=== PATIENT | female | born 1965 | race Caucasian/White ===

== ENCOUNTER 2016-10-27 13:16 | Emergency (ER) | payer MEDICARE ==
--- NOTE | 2016-10-27 13:43 | ERPHSYRPT ---
- History of Present Illness Time Seen by Provider: 10/27/16 13:38 Source: patient Exam Limitations: no limitations Patient Subjective Stated Complaint: pt states she has had a sorethraot since 07/30/ states she seen the Dr the next day and started on a z-pack. Triage Nursing Assessment: pt pink, warm,dry. throat red. pt afebrile. Physician History: Pt. with sore throat, dry cough, nasal drainage for past 7 days. Placed on Z pack for 4 days. No fever but chills, no nausea, vomiting or diarrhea. Cough drops with minimal relief. Rest of family with similar symptoms. Timing/Duration: day(s) (7), constant Severity: moderate Modifying Factors: Improves With: eating (hurts to swallow), other (Takes Percoset for chronic back pain) Associated Symptoms: cough (dry), No nausea, No vomiting, No shortness of breath , No chest pain, No fever, No headaches Allergies/Adverse Reactions: sulfamethoxazole [From Bactrim] Allergy (Intermediate, Verified 10/27/16 13:26) trimethoprim [From Bactrim] Allergy (Intermediate, Verified 10/27/16 13:26) cefaclor [From Ceclor] Allergy (Mild, Verified 10/27/16 13:26) Diarrhea cephalexin monohydrate [From Keflex] Allergy (Mild, Verified 10/27/16 13:26) Diarrhea metronidazole [From Flagyl] Allergy (Mild, Verified 10/27/16 13:26) Nausea and Vomiting Metronidazole HCl [From Flagyl] Allergy (Mild, Verified 10/27/16 13:26) Nausea and Vomiting Home Medications: Alprazolam [Xanax] 2 mg PO HS 11/08/13 [History] Albuterol Sulfate [Proair Hfa] 2 puff IH Q4HPRN PRN 11/10/14 [History] Cetirizine HCl [Zyrtec] 1 tab PO DAILY 05/30/16 [History] Omeprazole 20 MG [Prilosec 20 mg] 20 mg PO DAILY 05/30/16 [History] Oxycodone HCl/Acetaminophen [Percocet 10-325 mg Tablet] 1 tab PO QID 05/30/16 [ History] Simvastatin [Zocor] 1 tab PO DAILY 05/30/16 [History] Venlafaxine HCl [Effexor Xr] 150 mg PO DAILY 05/30/16 [History] Venlafaxine HCl [Effexor] 75 mg PO DAILY 10/27/16 [History] Hx Tetanus, Diphtheria Vaccination/Date Given: Yes (up to date) Hx Influenza Vaccination/Date Given: Yes Hx Pneumococcal Vaccination/Date Given: Yes Immunizations Up to Date: Yes - Review of Systems Constitutional: No Fever, No Chills Eyes: No Symptoms Ears, Nose, & Throat: Nose Discharge, Throat Pain Respiratory: No Cough, No Dyspnea Cardiac: No Chest Pain, No Edema, No Syncope Abdominal/Gastrointestinal: No Abdominal Pain, No Nausea, No Vomiting, No Diarrhea Genitourinary Symptoms: No Dysuria Musculoskeletal: No Back Pain, No Neck Pain Skin: No Rash Neurological: No Dizziness, No Focal Weakness, No Sensory Changes Psychological: No Symptoms Endocrine: No Symptoms All Other Systems: Reviewed and Negative - Past Medical History Pertinent Past Medical History: Yes Neurological History: Other ENT History: No Pertinent History Cardiac History: No Pertinent History Respiratory History: Asthma, COPD, Sleep Apnea Endocrine Medical History: Diabetes Type II Musculoskeletal History: Degenerative Disk Disease GI Medical History: GERD History: No Pertinent History Psycho-Social History: Anxiety, Depression Female Reproductive Disorders: Other Other Medical History: myotoniC dystrophy - Past Surgical History Past Surgical History: Yes Neuro Surgical History: No Pertinent History Cardiac: No Pertinent History Respiratory: No Pertinent History Gastrointestinal: Cholecystectomy Genitourinary: No Pertinent History Musculoskeletal: No Pertinent History Female Surgical History: Section, Hysterectomy, Other Other Surgical History: tonsillectomy, breast biopsy, lymph node removal - Social History Smoking Status: Never smoker Exposure to second hand smoke: No Alcohol Use: None Drug Use: none Patient Lives Alone: No Significant Family History: no pertinent family hx - Female History Hx Now: No - Nursing Vital Signs Nursing Vital Signs: Initial Vital Signs Temperature 97.2 F Temperature Source Oral Pulse Rate 76 Respiratory Rate 20 Blood Pressure 151/95 Pain Intensity 6 - Physical Exam General Appearance: no apparent distress, alert Eye Exam: PERRL/EOMI, eyes nml inspection Ears, Nose, Throat Exam: TMs normal, moist mucous membranes, pharyngeal erythema Neck Exam: normal inspection, non-tender, supple, full range of motion Respiratory Exam: normal breath sounds, lungs clear, No respiratory distress Cardiovascular Exam: regular rate/rhythm, normal heart sounds, normal peripheral pulses Gastrointestinal/Abdomen Exam: soft, normal bowel sounds, No tenderness, No mass Back Exam: normal inspection, normal range of motion, No CVA tenderness, No vertebral tenderness Extremity Exam: normal inspection, normal range of motion, pelvis stable Neurologic Exam: alert, oriented x 3, cooperative, normal mood/affect, nml cerebellar function, nml station & gait, sensation nml, No motor deficits Skin Exam: normal color, warm, dry, No rash Lymphatic Exam: No adenopathy SpO2: 95 Oxygen Delivery: Room Air - Course Nursing assessment & vital signs reviewed: Yes Ordered Tests: Active Orders 24 hr Category Date Time Status CULTURE, THROAT Stat Lab 10/27/16 13:46 Received STREP SCREEN-BETA A Stat Lab 10/27/16 13:46 Completed Lab/Rad Data: Laboratory Results 10/27/16 Range/Units 13:46 Streptococcus Screen NEGATIVE (Negative) - Progress Progress: unchanged Counseled pt/family regarding: diagnosis - Departure Time of Disposition: 14:21 Departure Disposition: Home Clinical Impression: Pharyngitis Condition: Stable Critical Care Time: No Referrals: WES VERDUGO [Primary Care Provider] - Instructions: Viral Pharyngitis Additional Instructions: return for worse sore throat, fever, chills or difficulty swallowing. May use throat lozenges, Motrin or Tylenol for discomfort.
[2016-10-27 14:28] VITALS: BP 128/88; PULSE 80; O2SAT 94
== END 2016-10-27 14:28 | disposition home or self-care (01) ==
LOC: ED 13:16
DX: J02.9 Acute pharyngitis, unspecified (principal); E11.9 Type 2 diabetes mellitus without complications; J45.909 Unspecified asthma, uncomplicated; Z79.899 Other long term (current) drug therapy
CPT/HCPCS: 87070; 87430; 99283

== ENCOUNTER 2017-01-18 17:53 | Emergency (ER) | payer MEDICARE ==
[2017-01-18] MEDS ORDERED: Pepcid 20 MG VIAL IV ONE ×2 (18:08→18:29)
[2017-01-18] MEDS ORDERED: Sodium Chloride 0.9% 1000 ML 1,000 ML IV STA (18:08)
[2017-01-18] MEDS ORDERED: Vistaril 50 MG/ML IM ONE ×2 (18:09→18:29)
[2017-01-18] MEDS ORDERED: Sodium Chloride 0.9% 1000 ML 1,000 ML ONE (18:29)
[2017-01-18 18:43] LABS: BASOPHIL % 0.2 % (0.0-0.4); Eosinophil % 0.5 % (0.00-5.0); Granulocytes % 61.4 % (36.0-66.0); Lymphocytes % 32.4 % (24.0-44.0); Mean Cell Volume 97.6 fl (78-100); Mean Corpuscular Hemoglobin 33.5 pg (26-32); Mean Platelet Volume 10.6 fl (6-9.5); Monocytes % 5.5 % (0.0-12.0); Platelet Count 178 K/mm3 (150-450); Red Blood Count 4.65 M/mm3 (4.1-5.4); Red Cell Distribution Width 13.2 % (11.5-14.0); White Blood Count 5.8 K/mm3 (4.0-10.5)
--- NOTE | 2017-01-18 18:45 | ERPHSYRPT ---
- History of Present Illness Time Seen by Provider: 01/18/17 18:02 Source: patient Patient Subjective Stated Complaint: vomiting/diarrhea Triage Nursing Assessment: staets since saturday evening has had vomiting and diarrhea. vomited x3 yesterday with diarreha x4 yesterday. has had one diarrhea stool today and no vomiting today but has been nausea. c/o abd cramping. skin warm and dry. oral membranes moist Physician History: CC; stomach burning Hx: 51 y/o patient of [employer] with hx of elevated transaminases. She notes some vomiting, diarrhea, stomach burning. She states was unable to drink today. It makes her stomach turn to swallow saliva. She however did not vomit today and had one diarrhea stool. Normal clear urine. No fever or chills. No cough. Timing/Duration: day(s) (3) Severity: mild Allergies/Adverse Reactions: sulfamethoxazole [From Bactrim] Allergy (Intermediate, Verified 01/18/17 18:09) trimethoprim [From Bactrim] Allergy (Intermediate, Verified 01/18/17 18:09) cefaclor [From Ceclor] Allergy (Mild, Verified 01/18/17 18:09) Diarrhea cephalexin monohydrate [From Keflex] Allergy (Mild, Verified 01/18/17 18:09) Diarrhea metronidazole [From Flagyl] Allergy (Mild, Verified 01/18/17 18:09) Nausea and Vomiting Metronidazole HCl [From Flagyl] Allergy (Mild, Verified 01/18/17 18:09) Nausea and Vomiting Home Medications: Albuterol Sulfate [Proair Hfa] 2 puff IH Q4HPRN PRN 11/10/14 [History] Cetirizine HCl [Zyrtec] 1 tab PO DAILY 05/30/16 [History] Omeprazole 20 MG [Prilosec 20 mg] 20 mg PO DAILY 05/30/16 [History] Oxycodone HCl/Acetaminophen [Percocet 10-325 mg Tablet] 1 tab PO QID 05/30/16 [ History] Simvastatin [Zocor] 1 tab PO DAILY 05/30/16 [History] Venlafaxine HCl [Effexor Xr] 150 mg PO DAILY 05/30/16 [History] Venlafaxine HCl [Effexor] 75 mg PO HS 10/27/16 [History] Aripiprazole 10 mg [Abilify 10 MG] 10 mg PO HS 11/17/16 [History] Glipizide 5 mg [Glucotrol 5 MG] 5 mg PO DAILY 11/17/16 [History] Pregabalin [Lyrica 100Mg] 100 mg PO BID 11/17/16 [History] Dicyclomine HCl 20 mg [Bentyl 20 mg] 20 mg PO DAILY 01/18/17 [History] Hx Tetanus, Diphtheria Vaccination/Date Given: Yes Hx Influenza Vaccination/Date Given: Yes Hx Pneumococcal Vaccination/Date Given: Yes Immunizations Up to Date: Yes - Review of Systems Constitutional: Fatigue, Malaise, Weakness, No Fever, No Chills Eyes: No Symptoms Ears, Nose, & Throat: No Symptoms Respiratory: No Cough, No Dyspnea Cardiac: No Chest Pain Abdominal/Gastrointestinal: Abdominal Pain (cramping), Nausea, Vomiting, Diarrhea Genitourinary Symptoms: No Dysuria Musculoskeletal: No Back Pain Skin: No Rash Neurological: No Headache All Other Systems: Reviewed and Negative - Past Medical History Pertinent Past Medical History: Yes Neurological History: Peripheral Neuropathy ENT History: No Pertinent History Cardiac History: Other Respiratory History: Other Endocrine Medical History: Diabetes Type II, Other Musculoskeletal History: Fibromyalgia, Osteoarthritis GI Medical History: GERD History: No Pertinent History Psycho-Social History: Anxiety, Depression Female Reproductive Disorders: Other Other Medical History: Notes enlarged liver, elevated enzymes; - Past Surgical History Past Surgical History: Yes Neuro Surgical History: No Pertinent History Cardiac: No Pertinent History Respiratory: No Pertinent History Gastrointestinal: Cholecystectomy Genitourinary: No Pertinent History Musculoskeletal: No Pertinent History Female Surgical History: Section, Hysterectomy, Other Other Surgical History: tonsillectomy, breast biopsy, lymph node removal - Social History Smoking Status: Never smoker Exposure to second hand smoke: Yes Alcohol Use: None Drug Use: none Patient Lives Alone: No Significant Family History: no pertinent family hx - Female History Hx Now: No - Nursing Vital Signs Nursing Vital Signs: Initial Vital Signs Temperature 97.3 F Temperature Source Oral Pulse Rate 71 Respiratory Rate 18 Blood Pressure [Left Arm] 143/74 Pain Intensity 2 - Physical Exam General Appearance: alert Eye Exam: PERRL/EOMI Ears, Nose, Throat Exam: normal ENT inspection, moist mucous membranes Neck Exam: normal inspection, non-tender, supple Respiratory Exam: normal breath sounds, lungs clear Cardiovascular Exam: regular rate/rhythm, No murmur Gastrointestinal/Abdomen Exam: soft, No tenderness, No distention, No mass, No guarding Back Exam: normal inspection Extremity Exam: normal inspection, normal range of motion Neurologic Exam: alert, oriented x 3, cooperative, sensation nml, No motor deficits Skin Exam: warm, dry, No rash - Course Nursing assessment & vital signs reviewed: Yes Ordered Tests: Active Orders 24 hr Category Date Time Status IV Insertion STAT Care 01/18/17 18:08 Active OBSTR/ACUTE ABDOMEN SERIES Stat Exams 01/18/17 18:09 Taken CBC W DIFF Stat Lab 01/18/17 18:25 Completed CMP Stat Lab 01/18/17 18:25 Completed CULTURE,URINE Stat Lab 01/18/17 19:09 Received LIPASE Stat Lab 01/18/17 18:25 Completed UA W/ MICROSCOPIC Stat Lab 01/18/17 19:09 Completed Medication Summary Discontinued Medications Generic Name Dose Route Start Last Admin Trade Name Nikkoq PRN Reason Stop Dose Admin Famotidine 20 mg 01/18/17 18:08 01/18/17 18:30 Pepcid 20 Mg Vial IV 01/18/17 18:09 20 mg STAT ONE Administration Famotidine Confirm 01/18/17 18:29 Pepcid 20 Mg Vial Administered 01/18/17 18:30 Dose 20 mg IV .STK-MED ONE Hydroxyzine HCl 50 mg 01/18/17 18:09 01/18/17 18:30 Vistaril 50 Mg/Ml IM 01/18/17 18:10 50 mg STAT ONE Administration Hydroxyzine HCl Confirm 01/18/17 18:29 Vistaril 50 Mg/Ml Administered 01/18/17 18:30 Dose 50 mg IM .STK-MED ONE Sodium Chloride 1,000 mls @ 999 mls/hr 01/18/17 18:08 01/18/17 18:30 Sodium Chloride 0.9% 1000 Ml IV 01/18/17 19:08 999 mls/hr .Q1H1M STA Administration Sodium Chloride Confirm 01/18/17 18:29 Sodium Chloride 0.9% 1000 Ml Administered 01/18/17 18:30 Dose 1,000 mls @ ud .ROUTE .STK-MED ONE Lab/Rad Data: Laboratory Result Diagrams 01/18/17 18:25 01/18/17 18:25 Laboratory Results 01/18/17 01/18/17 01/18/17 Range/Units 19:09 18:25 18:25 WBC 5.8 (4.0-10.5) K/mm3 RBC 4.65 (4.1-5.4) M/mm3 Hgb 15.6 (12.0-16.0) gm/dl Hct 45.4 (35-47) % MCV 97.6 (78-100) fl MCH 33.5 H (26-32) pg MCHC 34.4 (32-36) g/dl RDW 13.2 (11.5-14.0) % Plt Count 178 (150-450) K/mm3 MPV 10.6 H (6-9.5) fl Gran % 61.4 (36.0-66.0) % Lymphocytes % 32.4 (24.0-44.0) % Monocytes % 5.5 (0.0-12.0) % Eosinophils % 0.5 (0.00-5.0) % Basophils % 0.2 (0.0-0.4) % Basophils # 0.01 (0-0.4) Sodium 146 H (136-145) mEq/L Potassium 4.0 (3.5-5.1) mEq/L Chloride 108 H (98-107) mEq/L Carbon Dioxide 29.0 (21-32) mEq/L Anion Gap 13.4 (5-15) MEQ/L BUN 12 (9-20) mg/dL Creatinine 0.97 (0.55-1.30) mg/dl Estimated GFR > 60 ML/MIN Glucose 169 H (70-110) MG/DL Calcium 9.2 (8.5-10.1) mg/dL Total Bilirubin 1.4 H (0.2-1.0) mg/dL AST 44 H (15-37) U/L ALT 85 H (12-78) U/L Alkaline Phosphatase 112 (46-116) U/L Serum Total Protein 7.4 (6.4-8.2) gm/dL Albumin 3.7 (3.4-5.0) g/dL Lipase 91 (73-393) U/L Ur Collection Type CATH Urine Color YELLOW (YELLOW) Urine Appearance SLIGHTLY CLOUDY (CLEAR) Urine pH 5.0 (5-6) Ur Specific [place] >=1.030 (1.005-1.025) Urine Protein NEGATIVE (Negative) Urine Glucose (UA) NEGATIVE (NEGATIVE) mg/dL Urine Ketones NEGATIVE (NEGATIVE) Urine Nitrite NEGATIVE (NEGATIVE) Urine Bilirubin NEGATIVE (NEGATIVE) Urine Urobilinogen 0.2 (0-1) mg/dL Urine WBC (Auto) NEGATIVE (NEGATIVE) Urine RBC (Auto) TRACE-INTACT (0-5) Vin/ul Urine Microscopic RBC 0-2 (0-2) /HPF Urine Microscopic WBC 0-2 (0-5) /HPF Ur Epithelial Cells MODERATE (FEW) /HPF Amorphous Crystals MODERATE (NEGATIVE) /HPF Urine Bacteria PACKED (NEGATIVE) /HPF Urine Mucus MODERATE (NEGATIVE) /HPF Specimen Received 01/18/17 191 - Progress Progress Note: 01/18/17 19:31 Stable. She wants to try zofran ODT at home. Urine culture sent. AAS xray neg. Will release. She is sipping water. Advised no driving. Counseled pt/family regarding: lab results, diagnosis, need for follow-up, rad results - Departure Time of Disposition: 19:31 Departure Disposition: Home Clinical Impression: Vomiting and diarrhea, Dehydration Condition: Stable Critical Care Time: No Referrals: WES VERDUGO [Primary Care Provider] - Instructions: Diarrhea and Traveler's Diarrhea -- Adult, Vomiting -- Adult Additional Instructions: VOMITING AND DIARRHEA 1. Take only small amounts of clear, cool liquids at frequent intervals as tolerated for the next 24-48 hours. Avoid milk products and orange juice. Clear liquids are those liquids which you can see through. 2. Pedialyte and popsicles are recommended clear liquids. 3. If the condition worsens you should contact your family physician or return to the emergency department for re-evaluation. Rx zofran for nausea Prescriptions: Ondansetron [Zofran Odt] 4 mg PO Q6HPRN PRN #10 tab.rapdis PRN Reason: Nausea/Vomiting
[2017-01-18 18:52] LABS: ALBUMIN 3.7 g/dL (3.4-5.0); ALKALINE PHOSPHATASE 112 U/L (46-116); ANION GAP 13.4 MEQ/L (5-15); BILIRUBIN,TOTAL 1.4 mg/dL (0.2-1.0); BLOOD UREA NITROGEN 12 mg/dL (9-20); CHLORIDE 108 mEq/L (98-107); Glucose 169 MG/DL (70-110); LIPASE 91 U/L (73-393); SGOT/AST 44 U/L (15-37); SGPT/ALT 85 U/L (12-78); SODIUM 146 mEq/L (136-145); Total Protein 7.4 gm/dL (6.4-8.2)
[2017-01-18 19:24] VITALS: O2SAT 95
[2017-01-18 19:24] LABS: Collection Type CATH
[2017-01-18 19:25] LABS: Bacteria PACKED /HPF (NEGATIVE); COMPLETE URINE MICROSCOPIC? YES; Epithelial Cells MODERATE /HPF (FEW); Mucus MODERATE /HPF (NEGATIVE); WBC 0-2 /HPF (0-5)
[2017-01-18 19:50] VITALS: BP 164/71; PULSE 72
--- NOTE | 2017-01-19 08:07 | XRAY ---
Indication: Right-sided pain for 2 days. Comparison: Chest exam September 28, 2016. 2 views of the abdomen nonacute and nonobstructed with note of previous cholecystectomy. Solid organs unremarkable. Osseous structures intact with minimal osteopenia and degenerative changes. Single PA chest again demonstrates large left base calcified granuloma unchanged. Remaining heart and lungs normal. Bony thorax intact. Impression: Nonacute nonobstructed abdomen. Stable nonacute one view chest with chronic feature.
== END 2017-01-18 19:48 | disposition home or self-care (01) ==
LOC: ED 17:53
DX: R11.2 Nausea with vomiting, unspecified (principal); R19.7 Diarrhea, unspecified; E86.0 Dehydration
CPT/HCPCS: 96372; 96374; 99284; 36000; 96360; 81000; 36415; 83690; 85025; 80053; 87086; 74022; P9612; J3410

== ENCOUNTER 2017-04-26 16:25 | Emergency (ER) | payer MEDICARE ==
[2017-04-26] MEDS ORDERED: Nitrostat 0.4 MG (ED) SL ONE (16:42)
--- NOTE | 2017-04-26 16:42 | ERPHSYRPT ---
- History of Present Illness Time Seen by Provider: 04/26/17 16:39 Historian: patient Exam Limitations: no limitations Physician History: 51 y/o female comes to the ER with complaints of substernal chest pain that started at 3 pm this afternoon. Pt describes the pain as aching, pressure like, 8/10, and not relieved by ASA. Pt was sitting down when she experienced the pain. Pt denies any fever, chills, cough, dizziness, palpitations or shortness of breath. Pt had a stress test done last year and was told she will need a pacemaker in 2 years. Timing/Duration: today Activities at Onset: none Quality: aching, pressure Location: substernal Chest Pain Radiation: no radiation Severity of Pain-Max: moderate Severity of Pain-Current: moderate Modifying Factors: Improves With: nothing Associated Symptoms: denies symptoms Nitro Today/Relief: no nitro taken today Aspirin Treatment Today: 81 mg x 1 Allergies/Adverse Reactions: sulfamethoxazole [From Bactrim] Allergy (Intermediate, Verified 01/18/17 18:09) trimethoprim [From Bactrim] Allergy (Intermediate, Verified 01/18/17 18:09) cefaclor [From Ceclor] Allergy (Mild, Verified 01/18/17 18:09) Diarrhea cephalexin monohydrate [From Keflex] Allergy (Mild, Verified 01/18/17 18:09) Diarrhea metronidazole [From Flagyl] Allergy (Mild, Verified 01/18/17 18:09) Nausea and Vomiting Metronidazole HCl [From Flagyl] Allergy (Mild, Verified 01/18/17 18:09) Nausea and Vomiting Home Medications: Aripiprazole 10 mg [Abilify 10 MG] 10 mg PO DAILY 04/26/17 [History] Aspirin 81 gm Chew [Baby Aspirin 81 mg Chew] 81 mg PO DAILY 04/26/17 [ History] Budesonide [Budesonide EC] 3 mg PO DAILY 04/26/17 [History] Cetirizine HCl [All Day Allergy] 10 mg PO DAILY 04/26/17 [History] Dicyclomine HCl [Bentyl] 10 mg PO Q8H PRN PRN 04/26/17 [History] Glipizide 5 mg [Glucotrol 5 MG] 5 mg PO DAILY 04/26/17 [History] Mometasone Furoate [Nasonex] 17 gm NS DAILY 04/26/17 [History] Omeprazole 20 MG [Prilosec 20 mg] 20 mg PO DAILY 04/26/17 [History] Pregabalin [Lyrica 100Mg] 100 mg PO BID 04/26/17 [History] Simvastatin 10 mg PO DAILY 04/26/17 [History] Trazodone HCl 100 mg PO HS 04/26/17 [History] Venlafaxine HCl ER 75 mg [Effexor XR 75 MG] 75 mg PO DAILY 04/26/17 [ History] Hx Tetanus, Diphtheria Vaccination/Date Given: Yes Hx Influenza Vaccination/Date Given: Yes Hx Pneumococcal Vaccination/Date Given: Yes - Review of Systems Constitutional: No Fever, No Chills Eyes: No Symptoms Ears, Nose, & Throat: No Symptoms Respiratory: No Cough, No Dyspnea Cardiac: Chest Pain, No Edema, No Syncope Abdominal/Gastrointestinal: No Abdominal Pain, No Nausea, No Vomiting, No Diarrhea Genitourinary Symptoms: No Dysuria Musculoskeletal: No Back Pain, No Neck Pain Skin: No Rash Neurological: No Dizziness, No Focal Weakness, No Sensory Changes Psychological: No Symptoms Endocrine: No Symptoms All Other Systems: Reviewed and Negative - Past Medical History Pertinent Past Medical History: Yes Neurological History: Peripheral Neuropathy ENT History: No Pertinent History Cardiac History: Other Respiratory History: Other Endocrine Medical History: Diabetes Type II, Other Musculoskeletal History: Fibromyalgia, Osteoarthritis GI Medical History: GERD History: No Pertinent History Psycho-Social History: Anxiety, Depression Female Reproductive Disorders: Other Other Medical History: Notes enlarged liver, elevated enzymes; - Past Surgical History Past Surgical History: Yes Neuro Surgical History: No Pertinent History Cardiac: No Pertinent History Respiratory: No Pertinent History Gastrointestinal: Cholecystectomy Genitourinary: No Pertinent History Musculoskeletal: No Pertinent History Female Surgical History: Section, Hysterectomy, Other Other Surgical History: tonsillectomy, breast biopsy, lymph node removal - Social History Smoking Status: Never smoker Exposure to second hand smoke: Yes Alcohol Use: None Drug Use: none Patient Lives Alone: No Significant Family History: no pertinent family hx - Female History Hx Now: No - Nursing Vital Signs Nursing Vital Signs: Initial Vital Signs Temperature 97.9 F Temperature Source Oral Pulse Rate [Bilateral Radial] 78 Pulse Rate 68 Respiratory Rate 18 Blood Pressure [Left Arm] 133/79 Blood Pressure [Right Arm] 101/56 Pain Intensity 7 - Physical Exam General Appearance: mild distress, alert Eye Exam: PERRL/EOMI, eyes nml inspection Ears, Nose, Throat Exam: normal ENT inspection, moist mucous membranes Neck Exam: normal inspection, non-tender, supple, full range of motion Respiratory Exam: normal breath sounds, lungs clear, No respiratory distress Cardiovascular Exam: regular rate/rhythm, normal heart sounds, normal peripheral pulses Gastrointestinal/Abdomen Exam: soft, No tenderness, No mass Back Exam: normal inspection, No CVA tenderness, No vertebral tenderness Extremity Exam: normal inspection, normal range of motion Neurologic Exam: alert, oriented x 3, cooperative, normal mood/affect, sensation nml, No motor deficits Skin Exam: normal color, warm, dry - Course Nursing assessment & vital signs reviewed: Yes EKG Interpreted by Me: RATE, Sinus Rhythm, NORMAL AXIS, Non-specific ST Changes Ordered Tests: Active Orders 24 hr Category Date Time Status EKG-ER Only STAT Care 04/26/17 16:38 Active IV Insertion STAT Care 04/26/17 16:38 Active CHEST 2 VIEWS (PA AND LAT) Stat Exams 04/26/17 16:38 Taken CBCD [CBC W DIFF] Stat Lab 04/26/17 16:46 Completed CMP Stat Lab 04/26/17 16:46 Completed D-DIMER QUANTITATION Stat Lab 04/26/17 16:46 Completed PT INR [PROTIME WITH INR] Stat Lab 04/26/17 16:46 Completed PTT Stat Lab 04/26/17 16:46 Completed TROPONIN Stat Lab 04/26/17 16:46 Completed Medication Summary Discontinued Medications Generic Name Dose Route Start Last Admin Trade Name Wero PRN Reason Stop Dose Admin Aspirin 162 mg 04/26/17 17:52 04/26/17 17:56 Baby Aspirin 81 Mg Chew PO 04/26/17 17:53 162 mg STAT ONE Administration Aspirin Confirm 04/26/17 17:54 Baby Aspirin 81 Mg Chew Administered 04/26/17 17:55 Dose 162 mg .ROUTE .STK-MED ONE Clopidogrel Bisulfate 300 mg 04/26/17 17:39 04/26/17 17:45 Plavix 75 Mg Tablet PO 04/26/17 17:40 300 mg STAT ONE Administration Clopidogrel Bisulfate Confirm 04/26/17 17:38 Plavix 75 Mg Tablet Administered 04/26/17 17:39 Dose 300 mg .ROUTE .STK-MED ONE Enoxaparin Sodium Confirm 04/26/17 17:38 Enoxaparin Sodium Administered 04/26/17 17:39 Dose 120 mg SQ .STK-MED ONE Enoxaparin Sodium 100 mg 04/26/17 17:41 04/26/17 17:45 Enoxaparin Sodium SQ 04/26/17 17:42 100 mg 1XONLY ONE Administration Morphine Sulfate 4 mg 04/26/17 17:46 04/26/17 17:55 Morphine Sulfate 4 Mg Inj IV 04/26/17 17:47 4 mg STAT ONE Administration Morphine Sulfate Confirm 04/26/17 17:53 Morphine Sulfate 4 Mg Inj Administered 04/26/17 17:54 Dose 4 mg .ROUTE .STK-MED ONE Nitroglycerin 0.4 mg 04/26/17 16:42 04/26/17 16:52 Nitrostat 0.4 Mg (Ed) SL 04/26/17 16:43 0.4 mg STAT ONE Administration Lab/Rad Data: Laboratory Result Diagrams 04/26/17 16:46 04/26/17 16:46 Laboratory Results 04/26/17 04/26/17 04/26/17 Range/Units 16:46 16:46 16:46 WBC 6.5 (4.0-10.5) K/mm3 RBC 4.80 (4.1-5.4) M/mm3 Hgb 15.6 (12.0-16.0) gm/dl Hct 46.6 (35-47) % MCV 97.1 (78-100) fl MCH 32.5 H (26-32) pg MCHC 33.5 (32-36) g/dl RDW 12.2 (11.5-14.0) % Plt Count 151 (150-450) K/mm3 MPV 11.2 H (6-9.5) fl Gran % 57.0 (36.0-66.0) % Lymphocytes % 36.9 (24.0-44.0) % Monocytes % 4.8 (0.0-12.0) % Eosinophils % 1.1 (0.00-5.0) % Basophils % 0.2 (0.0-0.4) % Basophils # 0.01 (0-0.4) INR 1.00 (0.8-3.0) APTT 28.9 (25.3-37.0) SECONDS D-Dimer 371 (0-500) ng/mL Sodium 141 (136-145) mEq/L Potassium 3.7 (3.5-5.1) mEq/L Chloride 104 (98-107) mEq/L Carbon Dioxide 25.7 (21-32) mEq/L Anion Gap 15.0 (5-15) MEQ/L BUN 16 (9-20) mg/dL Creatinine 0.88 (0.55-1.30) mg/dl Estimated GFR > 60 ML/MIN Glucose 215 H (70-110) MG/DL Calcium 9.0 (8.5-10.1) mg/dL Total Bilirubin 1.50 H (0.2-1.0) mg/dL AST 35 (15-37) U/L ALT 36 (12-78) U/L Alkaline Phosphatase 93 (46-116) U/L Troponin I 0.717 H* (0.000-0.056) ng/ml Serum Total Protein 6.8 (6.4-8.2) gm/dL Albumin 3.5 (3.4-5.0) g/dL - Progress Progress: improved Air Movement: good Progress Note: 04/26/17 18:08 Pt has no relief after receiving ASA and nitro but admits to relief of pain after receiving morphine 4mg IV X 1 dose. The EKG shows similar T wave inversions as previous EKG. Pt has an elevated troponin of 0.717. Pt was given additional ASA 162mg , plavix 300mg and lovenox 100mg. Pt has been accepted by hospitalist, Dr Jhaveri at [facility]. - Departure Time of Disposition: 18:10 Departure Disposition: Transfer Clinical Impression: NSTEMI (non-ST elevated myocardial infarction) Condition: Fair Critical Care Time: Yes Critical Care Time(excluding separately billable procedures): 75-104 minutes
[2017-04-26 16:53] LABS: BASOPHIL % 0.2 % (0.0-0.4); Eosinophil % 1.1 % (0.00-5.0); Lymphocytes % 36.9 % (24.0-44.0); Mean Cell Volume 97.1 fl (78-100); Mean Corpuscular Hemoglobin 32.5 pg (26-32); Mean Platelet Volume 11.2 fl (6-9.5); Monocytes % 4.8 % (0.0-12.0); Platelet Count 151 K/mm3 (150-450); Red Cell Distribution Width 12.2 % (11.5-14.0); White Blood Count 6.5 K/mm3 (4.0-10.5)
[2017-04-26 17:24] VITALS: O2SAT 95
[2017-04-26 17:27] LABS: ALBUMIN 3.5 g/dL (3.4-5.0); ALKALINE PHOSPHATASE 93 U/L (46-116); BLOOD UREA NITROGEN 16 mg/dL (9-20); CHLORIDE 104 mEq/L (98-107); Carbon Dioxide 25.7 mEq/L (21-32); Glucose 215 MG/DL (70-110); Potassium 3.7 mEq/L (3.5-5.1); SGOT/AST 35 U/L (15-37); SGPT/ALT 36 U/L (12-78); SODIUM 141 mEq/L (136-145); Total Protein 6.8 gm/dL (6.4-8.2)
[2017-04-26 17:29] LABS: PROTIME 11.3 SECONDS (9.95-12.35); TROPONIN 0.717 ng/ml (0.000-0.056)
[2017-04-26 17:32] LABS: PTT 28.9 SECONDS (25.3-37.0)
[2017-04-26] MEDS ORDERED: PLAVIX 75 MG Tablet ONE (17:38)
[2017-04-26] MEDS ORDERED: ENOXAPARIN SODIUM SQ ONE ×2 (17:38→17:41)
[2017-04-26] MEDS ORDERED: PLAVIX 75 MG Tablet PO ONE (17:39)
[2017-04-26] MEDS ORDERED: MORPHINE SULFATE 4 MG INJ IV ONE (17:46)
[2017-04-26] MEDS ORDERED: BABY ASPIRIN 81 MG CHEW PO ONE (17:52)
[2017-04-26] MEDS ORDERED: MORPHINE SULFATE 4 MG INJ ONE (17:53)
[2017-04-26] MEDS ORDERED: BABY ASPIRIN 81 MG CHEW ONE (17:54)
[2017-04-26 18:10] VITALS: BP 119/70; PULSE 66
--- NOTE | 2017-04-27 08:46 | XRAY ---
Indication: Left-sided chest pain. Comparison: January 18, 2017. PA/lateral chest again demonstrates left lung base calcified granuloma. Remaining heart, lungs, and bony thorax normal.
== END 2017-04-26 18:35 | disposition short-term general hospital (02) ==
LOC: ED 16:25
DX: I21.4 Non-ST elevation (NSTEMI) myocardial infarction (principal); R07.89 Other chest pain; E11.9 Type 2 diabetes mellitus without complications; G62.9 Polyneuropathy, unspecified; R79.89 Other specified abnormal findings of blood chemistry; Z79.899 Other long term (current) drug therapy; Z79.84 Long term (current) use of oral hypoglycemic drugs
CPT/HCPCS: 36000; 36415; 71020; 80053; 84484; 85025; 85379; 85610; 85730; 93005; 96372; 96374; 99285; J1650; J2270; A9270-GY

== ENCOUNTER 2017-06-27 12:47 | Emergency (ER) | payer MEDICARE ==
[2017-06-27] MEDS ORDERED: Pepcid 20 MG VIAL IV ONE ×2 (13:21→13:27)
[2017-06-27] MEDS ORDERED: Sodium Chloride 0.9% 1000 ML 1,000 ML IV STA (13:21)
[2017-06-27] MEDS ORDERED: Hydromorphone 1 mg/ml Ampule IV ONE (13:21)
[2017-06-27] MEDS ORDERED: Zofran 4 MG/2 ML VIAL IV ONE (13:21)
[2017-06-27] MEDS ORDERED: Zofran 4 MG/2 ML VIAL ONE (13:27)
[2017-06-27] MEDS ORDERED: Sodium Chloride 0.9% 1000 ML 1,000 ML ONE (13:28)
[2017-06-27] MEDS ORDERED: Hydromorphone 1 mg/ml Ampule ONE (13:28)
[2017-06-27 13:44] LABS: BASOPHIL % 0.3 % (0.0-0.4); Eosinophil % 0.5 % (0.00-5.0); Granulocytes % 72.1 % (36.0-66.0); Lymphocytes % 21.9 % (24.0-44.0); Mean Cell Volume 97.6 fl (78-100); Mean Corpuscular Hemoglobin 32.7 pg (26-32); Mean Platelet Volume 11.2 fl (6-9.5); Monocytes % 5.2 % (0.0-12.0); Platelet Count 174 K/mm3 (150-450); Red Blood Count 5.04 M/mm3 (4.1-5.4); White Blood Count 6.5 K/mm3 (4.0-10.5)
[2017-06-27 13:46] LABS: Lactic Acid 2.2 (0.4-2.0)
[2017-06-27 13:46] LABS: Collection Type VOID; Leukocyte Esterase 2+ (NEGATIVE)
[2017-06-27 13:47] LABS: ADD URINE CULTURE? YES (NO); Bacteria MODERATE /HPF (NEGATIVE); Bilirubin SMALL (NEGATIVE); Blood 50 Ery/ul (0-5); COMPLETE URINE MICROSCOPIC? YES; Glucose TRACE mg/dL (NEGATIVE); WBC 25-50 /HPF (0-5)
--- NOTE | 2017-06-27 14:02 | ERPHSYRPT ---
- History of Present Illness Time Seen by Provider: 06/27/17 13:03 Historian: patient, family Patient Subjective Stated Complaint: pt here for n/v x2 today and 2 loose stools , abd pain Triage Nursing Assessment: pt walked in, alert, resp easy, skin w/d pink,abd soft, co abd pain to left side Physician History: CC: vomiting hx: 52 y/o patient of [facility] Chris. She has abd pain, vomiting, diarrhea. No fever. Some dysuria. She is diabetic. Low grade fever at home. Severity of Pain-Max: moderate Severity of Pain-Current: moderate Allergies/Adverse Reactions: sulfamethoxazole [From Bactrim] Allergy (Intermediate, Verified 06/27/17 13:10) trimethoprim [From Bactrim] Allergy (Intermediate, Verified 06/27/17 13:10) cefaclor [From Ceclor] Allergy (Mild, Verified 06/27/17 13:10) Diarrhea cephalexin monohydrate [From Keflex] Allergy (Mild, Verified 06/27/17 13:10) Diarrhea metronidazole [From Flagyl] Allergy (Mild, Verified 06/27/17 13:10) Nausea and Vomiting Metronidazole HCl [From Flagyl] Allergy (Mild, Verified 06/27/17 13:10) Nausea and Vomiting Home Medications: Aripiprazole 10 mg [Abilify 10 MG] 10 mg PO DAILY 04/26/17 [History] Aspirin 81 gm Chew [Baby Aspirin 81 mg Chew] 81 mg PO DAILY 04/26/17 [ History] Budesonide [Budesonide EC] 3 mg PO DAILY 04/26/17 [History] Cetirizine HCl [All Day Allergy] 10 mg PO DAILY 04/26/17 [History] Dicyclomine HCl [Bentyl] 10 mg PO Q8H PRN PRN 04/26/17 [History] Glipizide 5 mg [Glucotrol 5 MG] 5 mg PO DAILY 04/26/17 [History] Mometasone Furoate [Nasonex] 17 gm NS DAILY 04/26/17 [History] Omeprazole 20 MG [Prilosec 20 mg] 20 mg PO DAILY 04/26/17 [History] Pregabalin [Lyrica 100Mg] 100 mg PO BID 04/26/17 [History] Simvastatin 10 mg PO DAILY 04/26/17 [History] Trazodone HCl 100 mg PO HS 04/26/17 [History] Venlafaxine HCl ER 75 mg [Effexor XR 75 MG] 75 mg PO DAILY 04/26/17 [ History] Metoprolol Succinate [Toprol Xl] 50 mg DAILY 06/27/17 [History] Ticagrelor [Brilinta] 60 mg BID 06/27/17 [History] Hx Tetanus, Diphtheria Vaccination/Date Given: Yes Hx Influenza Vaccination/Date Given: No Hx Pneumococcal Vaccination/Date Given: Yes Immunizations Up to Date: Yes - Review of Systems Constitutional: No Fever, No Chills Eyes: No Symptoms Ears, Nose, & Throat: No Symptoms Respiratory: No Cough, No Dyspnea Cardiac: No Chest Pain Abdominal/Gastrointestinal: Abdominal Pain, Nausea, Vomiting, Diarrhea Genitourinary Symptoms: Dysuria Skin: No Rash Neurological: No Headache All Other Systems: Reviewed and Negative - Past Medical History Pertinent Past Medical History: Yes Neurological History: Peripheral Neuropathy ENT History: No Pertinent History Cardiac History: Other Respiratory History: Other Endocrine Medical History: Diabetes Type II, Other Musculoskeletal History: Fibromyalgia, Osteoarthritis GI Medical History: GERD History: No Pertinent History Psycho-Social History: Anxiety, Depression Female Reproductive Disorders: Other Other Medical History: Liver disease - Past Surgical History Past Surgical History: Yes Neuro Surgical History: No Pertinent History Cardiac: No Pertinent History Respiratory: No Pertinent History Gastrointestinal: Cholecystectomy Genitourinary: No Pertinent History Musculoskeletal: No Pertinent History Female Surgical History: Section, Hysterectomy, Other Other Surgical History: tonsillectomy, breast biopsy, lymph node removal - Social History Smoking Status: Never smoker Exposure to second hand smoke: Yes Alcohol Use: None Drug Use: none Patient Lives Alone: No Significant Family History: no pertinent family hx - Female History Hx Last Menstrual Period: post Hx Now: No - Nursing Vital Signs Nursing Vital Signs: Initial Vital Signs Temperature 97.4 F 06/27/17 13:05 Pulse Rate 110 H 06/27/17 13:05 Respiratory Rate 16 06/27/17 13:05 Blood Pressure 156/84 06/27/17 13:05 O2 Sat by Pulse Oximetry 96 06/27/17 13:05 Pain Scale Pain Intensity 2 - Physical Exam General Appearance: alert Eye Exam: PERRL/EOMI, No scleral icterus Ears, Nose, Throat Exam: normal ENT inspection, moist mucous membranes Neck Exam: normal inspection Respiratory Exam: normal breath sounds, lungs clear Cardiovascular Exam: regular rate/rhythm Gastrointestinal/Abdomen Exam: soft, tenderness (RLQ) Extremity Exam: normal inspection, normal range of motion Neurologic Exam: alert, oriented x 3, cooperative, sensation nml, No motor deficits Skin Exam: warm, dry, No rash SpO2 Interpretation: normal SpO2: 96 Oxygen Delivery: Room Air - Course Nursing assessment & vital signs reviewed: Yes - CT Exams abd/pelvis CT Interpretation: Discussed w/radiologist (negative) Ordered Tests: Active Orders 24 hr Category Date Time Status IV Insertion STAT Care 06/27/17 13:21 Active NPO (ED) STAT Care 06/27/17 13:21 Active ABDOMEN AND PELVIS W CONTRAST [CT] Stat Exams 06/27/17 13:21 Completed CBC W DIFF Stat Lab 06/27/17 13:41 Completed CMP Stat Lab 06/27/17 13:41 Completed CULTURE,URINE Stat Lab 06/27/17 13:30 Received LIPASE Stat Lab 06/27/17 13:41 Completed Lactic Acid Stat Lab 06/27/17 Results UA W/ MICROSCOPIC Stat Lab 06/27/17 13:30 Completed Medication Summary Discontinued Medications Generic Name Dose Route Start Last Admin Trade Name Wero PRN Reason Stop Dose Admin Famotidine 20 mg 06/27/17 13:21 06/27/17 13:35 Pepcid 20 Mg Vial IV 06/27/17 13:22 20 mg STAT ONE Administration Famotidine Confirm 06/27/17 13:27 Pepcid 20 Mg Vial Administered 06/27/17 13:28 Dose 20 mg IV .STK-MED ONE Hydromorphone HCl 1 mg 06/27/17 13:21 06/27/17 13:35 Hydromorphone 1 Mg/Ml Ampule IV 06/27/17 13:22 1 mg STAT ONE Administration Hydromorphone HCl Confirm 06/27/17 13:28 Hydromorphone 1 Mg/Ml Ampule Administered 06/27/17 13:29 Dose 1 mg .ROUTE .STK-MED ONE Sodium Chloride 1,000 mls @ 999 mls/hr 06/27/17 13:21 06/27/17 13:34 Sodium Chloride 0.9% 1000 Ml IV 06/27/17 14:21 999 mls/hr .Q1H1M STA Administration Sodium Chloride Confirm 06/27/17 13:28 Sodium Chloride 0.9% 1000 Ml Administered 06/27/17 13:29 Dose 1,000 mls @ ud .ROUTE .STK-MED ONE Ondansetron HCl 4 mg 06/27/17 13:21 06/27/17 13:35 Zofran 4 Mg/2 Ml Vial IV 06/27/17 13:22 4 mg STAT ONE Administration Ondansetron HCl Confirm 06/27/17 13:27 Zofran 4 Mg/2 Ml Vial Administered 06/27/17 13:28 Dose 4 mg .ROUTE .STK-MED ONE Lab/Rad Data: Laboratory Result Diagrams 06/27/17 13:41 06/27/17 13:41 Laboratory Results 06/27/17 06/27/17 06/27/17 Range/Units Unknown 13:41 13:41 WBC 6.5 (4.0-10.5) K/mm3 RBC 5.04 (4.1-5.4) M/mm3 Hgb 16.5 H (12.0-16.0) gm/dl Hct 49.2 H (35-47) % MCV 97.6 (78-100) fl MCH 32.7 H (26-32) pg MCHC 33.5 (32-36) g/dl RDW 13.0 (11.5-14.0) % Plt Count 174 (150-450) K/mm3 MPV 11.2 H (6-9.5) fl Gran % 72.1 H (36.0-66.0) % Lymphocytes % 21.9 L (24.0-44.0) % Monocytes % 5.2 (0.0-12.0) % Eosinophils % 0.5 (0.00-5.0) % Basophils % 0.3 (0.0-0.4) % Basophils # 0.02 (0-0.4) Sodium 143 (136-145) mEq/L Potassium 3.8 (3.5-5.1) mEq/L Chloride 105 (98-107) mEq/L Carbon Dioxide 25.5 (21-32) mEq/L Anion Gap 16.2 H (5-15) MEQ/L BUN 15 (9-20) mg/dL Creatinine 1.10 (0.55-1.30) mg/dl Estimated GFR 55 ML/MIN Glucose 221 H (70-110) MG/DL Lactic Acid 2.2 H (0.4-2.0) Calcium 9.5 (8.5-10.1) mg/dL Total Bilirubin 3.00 H (0.2-1.0) mg/dL AST 32 (15-37) U/L ALT 42 (12-78) U/L Alkaline Phosphatase 149 H (46-116) U/L Serum Total Protein 7.4 (6.4-8.2) gm/dL Albumin 3.5 (3.4-5.0) g/dL Lipase 90 (73-393) U/L Ur Collection Type Urine Color (YELLOW) Urine Appearance (CLEAR) Urine pH (5-6) Ur Specific [place] (1.005-1.025) Urine Protein (Negative) Urine Ketones (NEGATIVE) Urine Blood (0-5) Vin/ul Urine Nitrite (NEGATIVE) Urine Bilirubin (NEGATIVE) Urine Urobilinogen (0-1) mg/dL Ur Leukocyte Esterase (NEGATIVE) Urine Microscopic RBC (0-2) /HPF Urine Microscopic WBC (0-5) /HPF Amorphous Crystals (NEGATIVE) /HPF Urine Bacteria (NEGATIVE) /HPF Urine Glucose (NEGATIVE) mg/dL Specimen Received 06/27/17 Range/Units 13:30 WBC (4.0-10.5) K/mm3 RBC (4.1-5.4) M/mm3 Hgb (12.0-16.0) gm/dl Hct (35-47) % MCV (78-100) fl MCH (26-32) pg MCHC (32-36) g/dl RDW (11.5-14.0) % Plt Count (150-450) K/mm3 MPV (6-9.5) fl Gran % (36.0-66.0) % Lymphocytes % (24.0-44.0) % Monocytes % (0.0-12.0) % Eosinophils % (0.00-5.0) % Basophils % (0.0-0.4) % Basophils # (0-0.4) Sodium (136-145) mEq/L Potassium (3.5-5.1) mEq/L Chloride (98-107) mEq/L Carbon Dioxide (21-32) mEq/L Anion Gap (5-15) MEQ/L BUN (9-20) mg/dL Creatinine (0.55-1.30) mg/dl Estimated GFR ML/MIN Glucose (70-110) MG/DL Lactic Acid (0.4-2.0) Calcium (8.5-10.1) mg/dL Total Bilirubin (0.2-1.0) mg/dL AST (15-37) U/L ALT (12-78) U/L Alkaline Phosphatase (46-116) U/L Serum Total Protein (6.4-8.2) gm/dL Albumin (3.4-5.0) g/dL Lipase (73-393) U/L Ur Collection Type VOID Urine Color YELLOW (YELLOW) Urine Appearance CLOUDY (CLEAR) Urine pH 5.0 (5-6) Ur Specific [place] 1.030 (1.005-1.025) Urine Protein 1+ (Negative) Urine Ketones NEGATIVE (NEGATIVE) Urine Blood 50 (0-5) Vin/ul Urine Nitrite NEGATIVE (NEGATIVE) Urine Bilirubin SMALL (NEGATIVE) Urine Urobilinogen NORMAL (0-1) mg/dL Ur Leukocyte Esterase 2+ (NEGATIVE) Urine Microscopic RBC 0-2 (0-2) /HPF Urine Microscopic WBC 25-50 (0-5) /HPF Amorphous Crystals MODERATE (NEGATIVE) /HPF Urine Bacteria MODERATE (NEGATIVE) /HPF Urine Glucose TRACE (NEGATIVE) mg/dL Specimen Received 06/27/17 1330 - Progress Progress Note: 06/27/17 15:07 She feels some better with meds and IVF. She has UTI. Will Rx cipro and zofran. Appt Saturday. Will release with instructions. Counseled pt/family regarding: lab results, diagnosis, need for follow-up, rad results - Departure Time of Disposition: 15:08 Departure Disposition: Home Clinical Impression: UTI (urinary tract infection), Vomiting and diarrhea Condition: Stable Critical Care Time: No Referrals: WES CHRIS [Primary Care Provider] - 07/01/17 1:15 pm Instructions: Vomiting -- Adult, Urinary Tract Infection (UTI) Additional Instructions: Rx cipro. Rx zofran for nausea. Watch your sugars. See [facility] Facundo Saturday 1:15 Return for problems or concerns Plenty of fluids Prescriptions: Ondansetron ODT 4 MG [Zofran Odt 4 mg] 1 tab PO Q6H PRN PRN #10 tab.rapdis PRN Reason: Nausea/Vomiting Ciprofloxacin [Cipro 500 MG] 1 tab PO BID #20 tablet
[2017-06-27 14:10] LABS: ALBUMIN 3.5 g/dL (3.4-5.0); ANION GAP 16.2 MEQ/L (5-15); Carbon Dioxide 25.5 mEq/L (21-32); Potassium 3.8 mEq/L (3.5-5.1); Total Protein 7.4 gm/dL (6.4-8.2)
[2017-06-27 14:57] VITALS: BP 113/71
--- NOTE | 2017-06-27 15:01 | XRAY ---
Indication: Right lower quadrant pain, vomiting, and diarrhea. Multiple contiguous axial images obtained through the abdomen and pelvis using 80 cc Isovue 370 contrast only. Comparison: Noncontrast exam December 05, 2012. Lung bases again demonstrates minimal bibasilar atelectasis/scarring and 2.6 cm left base calcified granuloma. Heart is not enlarged. Noncontrasted stomach and bowel loops appear nonobstructed. Normal appendix. No free fluid/air. Again previous hysterectomy and cholecystectomy with prominent common bile duct. No choledochal stone. Stable tiny hepatic cyst adjacent to the gallbladder fossa. Remaining liver, pancreas, spleen, adrenal glands, kidneys, ureters, bladder, and aorta appear unremarkable. No pathologic retroperitoneal lymphadenopathy. Osseous structures intact again with minimal spinal degenerative changes. Impression: 1. Stable large left lung base calcified granuloma and tiny hepatic cyst. 2. No new or acute intra-abdominal/pelvic abnormalities. CT DI 34.69
[2017-06-27 15:33] VITALS: PULSE 90; O2SAT 92
== END 2017-06-27 15:40 | disposition home or self-care (01) ==
LOC: ED 12:47
DX: N39.0 Urinary tract infection, site not specified (principal); R11.10 Vomiting, unspecified; R19.7 Diarrhea, unspecified; R10.9 Unspecified abdominal pain; R30.0 Dysuria; Z79.899 Other long term (current) drug therapy; E11.9 Type 2 diabetes mellitus without complications
CPT/HCPCS: 36000; 36415; 74177; 80053; 81000; 83605; 83690; 85025; 87086; 96360; 96374; 96375; 99284; J1170; J2405

== ENCOUNTER 2017-07-19 16:06 | Emergency (ER) | payer MEDICARE ==
[2017-07-19 16:38] VITALS: O2SAT 95
[2017-07-19] MEDS ORDERED: NovoLOG Insulin SQ ONE (17:10)
--- NOTE | 2017-07-19 17:13 | ERPHSYRPT ---
- History of Present Illness Time Seen by Provider: 07/19/17 16:52 Source: patient Patient Subjective Stated Complaint: high blood sugar today Triage Nursing Assessment: ambulated to room. skin w/d, color normal, resp easy. denies any other c/o except blood sugar elevated. took an extra glipizde earlier today but sugar is still elevated. Physician History: CC: high blood sugar Hx: 52 y/o patient of [facility] Chris. She has DM and is on glyburide ER 5mg daily. Today her sugar was high so she took extra pill at 12:30. Still in 270 range to came to ER. No unusual symptoms today. No fever or chills. Always has some memory problems. No chest or abd pain. Not short of breath but did use her nebulizer today. No abd pain, N/V/D. She went to her cardiac rehab today and was doing ok with the exception of elevated sugar. Allergies/Adverse Reactions: sulfamethoxazole [From Bactrim] Allergy (Intermediate, Verified 06/27/17 13:10) trimethoprim [From Bactrim] Allergy (Intermediate, Verified 06/27/17 13:10) cefaclor [From Ceclor] Allergy (Mild, Verified 06/27/17 13:10) Diarrhea cephalexin monohydrate [From Keflex] Allergy (Mild, Verified 06/27/17 13:10) Diarrhea metronidazole [From Flagyl] Allergy (Mild, Verified 06/27/17 13:10) Nausea and Vomiting Metronidazole HCl [From Flagyl] Allergy (Mild, Verified 06/27/17 13:10) Nausea and Vomiting Home Medications: Aripiprazole 10 mg [Abilify 10 MG] 10 mg PO DAILY 04/26/17 [History] Aspirin 81 gm Chew [Baby Aspirin 81 mg Chew] 81 mg PO DAILY 04/26/17 [ History] Budesonide [Budesonide EC] 3 mg PO DAILY 04/26/17 [History] Cetirizine HCl [All Day Allergy] 10 mg PO DAILY 04/26/17 [History] Dicyclomine HCl [Bentyl] 10 mg PO Q8H PRN PRN 04/26/17 [History] Glipizide 5 mg [Glucotrol 5 MG] 5 mg PO DAILY 04/26/17 [History] Mometasone Furoate [Nasonex] 17 gm NS DAILY 04/26/17 [History] Omeprazole 20 MG [Prilosec 20 mg] 20 mg PO DAILY 04/26/17 [History] Pregabalin [Lyrica 100Mg] 100 mg PO BID 04/26/17 [History] Simvastatin 10 mg PO DAILY 04/26/17 [History] Trazodone HCl 100 mg PO HS 04/26/17 [History] Metoprolol Succinate [Toprol Xl] 50 mg DAILY 06/27/17 [History] Ticagrelor [Brilinta] 60 mg BID 06/27/17 [History] Albuterol 2.5 mg/3 ml Neb [Proventil 2.5 mg/3 ml Neb] 2.5 mg IH UD [History] Eszopiclone [Lunesta] 4 mg PO HS 07/19/17 [History] Hx Tetanus, Diphtheria Vaccination/Date Given: No Hx Influenza Vaccination/Date Given: No Hx Pneumococcal Vaccination/Date Given: Yes - Review of Systems Constitutional: No Fever, No Chills Eyes: No Symptoms Ears, Nose, & Throat: No Symptoms Respiratory: No Cough, No Dyspnea Cardiac: No Chest Pain Abdominal/Gastrointestinal: No Abdominal Pain, No Nausea, No Vomiting, No Diarrhea Musculoskeletal: No Back Pain Skin: No Rash Neurological: No Headache All Other Systems: Reviewed and Negative - Past Medical History Pertinent Past Medical History: Yes Neurological History: Peripheral Neuropathy ENT History: No Pertinent History Cardiac History: Other Respiratory History: Other Endocrine Medical History: Diabetes Type II, Other Musculoskeletal History: Fibromyalgia, Osteoarthritis GI Medical History: GERD History: No Pertinent History Psycho-Social History: Anxiety, Depression Female Reproductive Disorders: Other Other Medical History: Liver disease - Past Surgical History Past Surgical History: Yes Neuro Surgical History: No Pertinent History Cardiac: No Pertinent History Respiratory: No Pertinent History Gastrointestinal: Cholecystectomy Genitourinary: No Pertinent History Musculoskeletal: No Pertinent History Female Surgical History: Section, Hysterectomy, Other Other Surgical History: tonsillectomy, breast biopsy, lymph node removal - Social History Smoking Status: Never smoker Exposure to second hand smoke: Yes Alcohol Use: None Drug Use: none Patient Lives Alone: No Significant Family History: no pertinent family hx - Female History Hx Now: No - Nursing Vital Signs Nursing Vital Signs: Initial Vital Signs Pulse Rate 92 H 07/19/17 16:12 Respiratory Rate 16 07/19/17 16:12 Blood Pressure 131/58 07/19/17 16:12 O2 Sat by Pulse Oximetry 98 07/19/17 16:12 Pain Scale Pain Intensity 4 - Physical Exam General Appearance: alert, obese Eye Exam: PERRL/EOMI Ears, Nose, Throat Exam: moist mucous membranes Neck Exam: normal inspection, non-tender, supple Respiratory Exam: normal breath sounds Cardiovascular Exam: regular rate/rhythm Gastrointestinal/Abdomen Exam: soft, No tenderness, No distention Back Exam: normal inspection Extremity Exam: normal inspection, normal range of motion Neurologic Exam: alert, oriented x 3, cooperative, sensation nml, No motor deficits Skin Exam: warm, dry, No rash SpO2 Interpretation: normal SpO2: 95 Oxygen Delivery: Room Air - Course Nursing assessment & vital signs reviewed: Yes Ordered Tests: Active Orders 24 hr Category Date Time Status ACCUCHECK [Accucheck] STAT Care 07/19/17 16:49 Active Clean Catch Urine Specimen STAT Care 07/19/17 17:13 Active CULTURE,URINE Stat Lab 07/19/17 17:30 Received Glucose,Critical Care Urgent Lab 07/19/17 17:20 Completed UA W/ MICROSCOPIC Stat Lab 07/19/17 17:30 Completed VENOUS BLOOD GAS Urgent Lab 07/19/17 17:25 Completed Medication Summary Discontinued Medications Generic Name Dose Route Start Last Admin Trade Name Nikkoq PRN Reason Stop Dose Admin Insulin Aspart 5 unit 07/19/17 17:10 07/19/17 17:27 Novolog Insulin SQ 07/19/17 17:11 5 unit STAT ONE Administration Insulin Aspart Confirm 07/19/17 17:25 Novolog Insulin Administered 07/19/17 17:26 Dose 5 unit .ROUTE .[employer] ONE Lab/Rad Data: Laboratory Results 07/19/17 07/19/17 07/19/17 Range/Units 17:30 17:25 17:20 VBG pH 7.39 (7.32-7.42) VBG pCO2 at Pat Temp 45 (42-55) mm/Hg VBG pO2 at Pat Temp 38 (25-40) mm/Hg VBG HCO3 27.2 (22-28) meq/L VBG O2 Sat (Zaki) 77.9 L (95-100) VBG Base Excess 1.7 (-2.0-2.0) VBG Hemoglobin 14.4 VBG Carboxyhemoglobin 1.9 (0.0-6.9) % T HGB POC Potassium 3.7 (3.5-5.1) Glucose 263 H (70-110) Ur Collection Type CCMS Urine Color YELLOW (YELLOW) Urine Appearance CLEAR (CLEAR) Urine pH 5.0 (5-6) Ur Specific [place] 1.020 (1.005-1.025) Urine Protein 1000 (Negative) Urine Ketones NEGATIVE (NEGATIVE) Urine Blood NEGATIVE (0-5) Vin/ul Urine Nitrite NEGATIVE (NEGATIVE) Urine Bilirubin NEGATIVE (NEGATIVE) Urine Urobilinogen NORMAL (0-1) mg/dL Ur Leukocyte Esterase 1+ (NEGATIVE) Urine Microscopic WBC 5-10 (0-5) /HPF Ur Epithelial Cells MODERATE (FEW) /HPF Urine Bacteria FEW (NEGATIVE) /HPF Urine Culture Reflexed YES (NO) Urine Glucose NEGATIVE (NEGATIVE) mg/dL Specimen Received 07-19-17 1744 - Progress Progress Note: 07/19/17 17:40 GLc 263. Not in DKA. K and Hg ok. 5 units novolog given. Advised OP follow up. 07/19/17 17:49 Voided urine with 5-10 wbc, no UTI symptoms, await cx. Counseled pt/family regarding: lab results, diagnosis, need for follow-up - Departure Time of Disposition: 17:50 Departure Disposition: Home Clinical Impression: Hyperglycemia due to type 2 diabetes mellitus Qualifiers: Diabetes mellitus longterm insulin use: without longterm use Qualified Code(s ): E11.65 - Type 2 diabetes mellitus with hyperglycemia Condition: Stable Critical Care Time: No Referrals: WES CHRIS [Primary Care Provider] - Instructions: Hyperglycemia -- Adult Additional Instructions: Watch sugar. You may take an extra sugar pill at noon when needed. Follow up with LYUBOV Chris Saturday. Return for problems or concerns.
[2017-07-19] MEDS ORDERED: NovoLOG Insulin ONE (17:25)
[2017-07-19 17:33] LABS: VBG BASE EXCESS 1.7 (-2.0-2.0); VBG CARBOXYHEMOGLOBIN 1.9 % T HGB (0.0-6.9); VBG HCO3- 27.2 meq/L (22-28); VBG HEMOGLOBIN 14.4; VBG O2 SATURATION 77.9 (95-100); VBG POTASSIUM 3.7 (3.5-5.1); VBG pH 7.39 (7.32-7.42)
[2017-07-19 17:45] LABS: ADD URINE CULTURE? YES (NO); Bacteria FEW /HPF (NEGATIVE); Bilirubin NEGATIVE (NEGATIVE); Blood NEGATIVE Ery/ul (0-5); COMPLETE URINE MICROSCOPIC? YES; Collection Type CCMS; Epithelial Cells MODERATE /HPF (FEW); Glucose NEGATIVE (NEGATIVE); Leukocyte Esterase 1+ (NEGATIVE)
[2017-07-19 17:57] VITALS: BP 141/92; PULSE 70
== END 2017-07-19 17:57 | disposition home or self-care (01) ==
LOC: ED 16:06
DX: E11.65 Type 2 diabetes mellitus with hyperglycemia (principal); Z79.84 Long term (current) use of oral hypoglycemic drugs; Z79.899 Other long term (current) drug therapy
CPT/HCPCS: 81000; 82805; 82947; 82962; 87086; 96372; 99282; 99284; A9270-GY

== ENCOUNTER 2017-10-25 13:42 | Emergency (ER) | payer MEDICARE ==
[2017-10-25] MEDS ORDERED: Sodium Chloride 0.9% 1000 ML 1,000 ML IV STA (14:11)
[2017-10-25] MEDS ORDERED: Sodium Chloride 0.9% 1000 ML 1,000 ML ONE (14:22)
--- NOTE | 2017-10-25 14:31 | ERPHSYRPT ---
- History of Present Illness Time Seen by Provider: 10/25/17 14:00 Source: patient Exam Limitations: clinical condition Patient Subjective Stated Complaint: Pt states "I was over at the specialty clinic and they sent me here because my blood pressure was 80 something over 67 and my pulse was hard to feel. I do not feel any different." Triage Nursing Assessment: Pt alert and oriented X 3, skin pwd. pt ambulates without difficulty, able to speak in clear full sentences. no apparent distress Physician History: PATIENT WITH A HISTORY OF HYPERTENSION, CHRONIC LOW BACK PAIN, TYPE 2 DIABETES STATES WHILE IN PAIN CLINIC HAS LOW BLOOD PRESSURE. DENIES CHEST PAIN, DYSPNEA , DIAPHORESIS OR PALPITATIONS. Allergies/Adverse Reactions: sulfamethoxazole [From Bactrim] Allergy (Intermediate, Verified 06/27/17 13:10) trimethoprim [From Bactrim] Allergy (Intermediate, Verified 06/27/17 13:10) cefaclor [From Ceclor] Allergy (Mild, Verified 06/27/17 13:10) Diarrhea cephalexin monohydrate [From Keflex] Allergy (Mild, Verified 06/27/17 13:10) Diarrhea metronidazole [From Flagyl] Allergy (Mild, Verified 06/27/17 13:10) Nausea and Vomiting Metronidazole HCl [From Flagyl] Allergy (Mild, Verified 06/27/17 13:10) Nausea and Vomiting Home Medications: Aripiprazole 10 mg [Abilify 10 MG] 10 mg PO DAILY 04/26/17 [History] Aspirin 81 gm Chew [Baby Aspirin 81 mg Chew] 81 mg PO DAILY 04/26/17 [ History] Budesonide [Budesonide EC] 3 mg PO DAILY 04/26/17 [History] Cetirizine HCl [All Day Allergy] 10 mg PO DAILY 04/26/17 [History] Dicyclomine HCl [Bentyl] 10 mg PO Q8H PRN PRN 04/26/17 [History] Glipizide 5 mg [Glucotrol 5 MG] 5 mg PO DAILY 04/26/17 [History] Mometasone Furoate [Nasonex] 17 gm NS DAILY 04/26/17 [History] Omeprazole 20 MG [Prilosec 20 mg] 20 mg PO DAILY 04/26/17 [History] Pregabalin [Lyrica 100Mg] 100 mg PO BID 04/26/17 [History] Simvastatin 10 mg PO DAILY 04/26/17 [History] Metoprolol Succinate [Toprol Xl] 50 mg PO DAILY 06/27/17 [History] Ticagrelor [Brilinta] 60 mg PO BID 06/27/17 [History] Albuterol 2.5 mg/3 ml Neb [Proventil 2.5 mg/3 ml Neb] 2.5 mg IH UD [History] Eszopiclone [Lunesta] 4 mg PO HS 07/19/17 [History] Atorvastatin Calcium [Lipitor 20MG Tablet] 20 mg PO DAILY 08/20/17 [History] Fluoxetine HCl 10 mg [Prozac 10 mg] 0 mg PO DAILY 10/22/17 [History] Oxycodone HCl/Acetaminophen [Percocet 10-325 mg Tablet] 1 each PO Q4-6HPRN PRN 10/22/17 [History] Hx Tetanus, Diphtheria Vaccination/Date Given: No Hx Influenza Vaccination/Date Given: No Hx Pneumococcal Vaccination/Date Given: Yes - Past Medical History Pertinent Past Medical History: Yes Neurological History: Peripheral Neuropathy ENT History: No Pertinent History Cardiac History: Other Respiratory History: Other Endocrine Medical History: Diabetes Type II, Other Musculoskeletal History: Fibromyalgia, Osteoarthritis GI Medical History: GERD History: No Pertinent History Psycho-Social History: Anxiety, Depression Female Reproductive Disorders: Other Other Medical History: Liver disease - Past Surgical History Past Surgical History: Yes Neuro Surgical History: No Pertinent History Cardiac: No Pertinent History Respiratory: No Pertinent History Gastrointestinal: Cholecystectomy Genitourinary: No Pertinent History Musculoskeletal: No Pertinent History Female Surgical History: Section, Hysterectomy, Other Other Surgical History: tonsillectomy, breast biopsy, lymph node removal - Social History Smoking Status: Never smoker Exposure to second hand smoke: Yes Alcohol Use: None Drug Use: none Patient Lives Alone: No Significant Family History: no pertinent family hx - Female History Hx Last Menstrual Period: hysterectomy Hx Now: No - Nursing Vital Signs Nursing Vital Signs: Initial Vital Signs Temperature 97.6 F 10/25/17 13:51 Pulse Rate 76 10/25/17 13:51 Respiratory Rate 16 10/25/17 13:51 Blood Pressure 131/84 10/25/17 13:51 O2 Sat by Pulse Oximetry 94 L 10/25/17 13:51 Pain Scale Pain Intensity 0 - Physical Exam SpO2: 94 Oxygen Delivery: Room Air Ordered Tests: Active Orders 24 hr Category Date Time Status EKG-ER Only STAT Care 10/25/17 14:13 Active Orthostatic Vital Signs STAT Care 10/25/17 14:13 Active CHEST 1 VIEW (PORTABLE) Stat Exams 10/25/17 14:26 Completed CBC W DIFF Stat Lab 10/25/17 14:22 Completed CMP Stat Lab 10/25/17 14:22 Completed TROPONIN Q3H Lab 10/25/17 14:22 Completed Medication Summary Discontinued Medications Generic Name Dose Route Start Last Admin Trade Name Freq PRN Reason Stop Dose Admin Sodium Chloride 1,000 mls @ 500 mls/hr 10/25/17 14:11 10/25/17 14:27 Sodium Chloride 0.9% 1000 Ml IV 10/25/17 16:10 500 mls/hr .Q2H STA Administration Sodium Chloride Confirm 10/25/17 14:22 Sodium Chloride 0.9% 1000 Ml Administered 10/25/17 14:23 Dose 1,000 mls @ ud .ROUTE .[facility] [place] Lab/Rad Data: Laboratory Result Diagrams 10/25/17 14:22 10/25/17 14:22 Laboratory Results 10/25/17 10/25/17 10/25/17 Range/Units 14:22 14:22 14:22 WBC 6.2 (4.0-10.5) K/mm3 RBC 4.41 (4.1-5.4) M/mm3 Hgb 14.1 (12.0-16.0) gm/dl Hct 43.4 (35-47) % MCV 98.4 (78-100) fl MCH 32.0 (26-32) pg MCHC 32.5 (32-36) g/dl RDW 12.8 (11.5-14.0) % Plt Count 165 (150-450) K/mm3 MPV 11.5 H (6-9.5) fl Gran % 57.4 (36.0-66.0) % Lymphocytes % 35.9 (24.0-44.0) % Monocytes % 5.4 (0.0-12.0) % Eosinophils % 1.1 (0.00-5.0) % Basophils % 0.2 (0.0-0.4) % Basophils # 0.01 (0-0.4) Sodium 144 (136-145) mEq/L Potassium 4.2 (3.5-5.1) mEq/L Chloride 110 H (98-107) mEq/L Carbon Dioxide 27.0 (21-32) mEq/L Anion Gap 10.9 (5-15) MEQ/L BUN 13 (9-20) mg/dL Creatinine 0.98 (0.55-1.30) mg/dl Estimated GFR > 60 ML/MIN Glucose 116 H (70-110) MG/DL Calcium 8.7 (8.5-10.1) mg/dL Total Bilirubin 1.60 H (0.2-1.0) mg/dL AST 49 H (15-37) U/L ALT 49 (12-78) U/L Alkaline Phosphatase 118 H (46-116) U/L Troponin I < 0.017 (0.000-0.056) ng/ml Serum Total Protein 6.3 L (6.4-8.2) gm/dL Albumin 2.9 L (3.4-5.0) g/dL - Departure Time of Disposition: 17:30 Clinical Impression: ORTHOSTATIC HYPOTENSION, DEHYDRATION Condition: Stable Critical Care Time: No Referrals: WES VERDUGO [Primary Care Provider] - Additional Instructions: CONTINUE ALL CURRENT MEDICATIONS. DRINK PLENTY OF FLUIDS. CONSULT YOUR PRIMARY CARE PROVIDER FOR EVALAUTION.
[2017-10-25 14:37] LABS: BASOPHIL % 0.2 % (0.0-0.4); Basophil (Absolute #) 0.01 (0-0.4); Eosinophil % 1.1 % (0.00-5.0); Eosinophil (Absolute #) 0.07 (0-0.5); Granulocyte Absolute (ANC) 3.58 (1.4-6.9); Granulocytes % 57.4 % (36.0-66.0); Hematocrit 43.4 % (35-47); Hemoglobin 14.1 gm/dl (12.0-16.0); Lymphocyte (Absolute #) 2.24 (1.0-4.6); Lymphocytes % 35.9 % (24.0-44.0); Mean Cell Volume 98.4 fl (78-100); Mean Corpuscular Hgb Concent. 32.5 g/dl (32-36); Mean Platelet Volume 11.5 fl (6-9.5); Monocyte (Absolute #) 0.34 (0.0-1.3); Monocytes % 5.4 % (0.0-12.0); Platelet Count 165 K/mm3 (150-450); Red Blood Count 4.41 M/mm3 (4.1-5.4); Red Cell Distribution Width 12.8 % (11.5-14.0); White Blood Count 6.2 K/mm3 (4.0-10.5)
--- NOTE | 2017-10-25 14:48 | XRAY ---
Indication: Tachycardia. Low blood pressure. Comparison: April 26, 2017. Portable chest demonstrates minimal right base subsegmental atelectasis/scarring and large left base calcified granuloma. Remaining heart, lungs, and bony thorax normal.
[2017-10-25 14:59] LABS: ALBUMIN 2.9 g/dL (3.4-5.0); ALKALINE PHOSPHATASE 118 U/L (46-116); ANION GAP 10.9 MEQ/L (5-15); BLOOD UREA NITROGEN 13 mg/dL (9-20); CHLORIDE 110 mEq/L (98-107); Calcium 8.7 mg/dL (8.5-10.1); Creatinine 1 0.98 mg/dl (0.55-1.30); EST GLOMERULAR FILTRATION RATE > 60 ML/MIN; Glucose 116 MG/DL (70-110); Potassium 4.2 mEq/L (3.5-5.1); SGOT/AST 49 U/L (15-37); SGPT/ALT 49 U/L (12-78); SODIUM 144 mEq/L (136-145); Total Protein 6.3 gm/dL (6.4-8.2)
--- NOTE | 2017-10-25 17:34 | ERPHSYRPT ---
- History of Present Illness Time Seen by Provider: 10/25/17 14:00 Source: patient Exam Limitations: clinical condition Patient Subjective Stated Complaint: Pt states "I was over at the specialty clinic and they sent me here because my blood pressure was 80 something over 67 and my pulse was hard to feel. I do not feel any different." Triage Nursing Assessment: Pt alert and oriented X 3, skin pwd. pt ambulates without difficulty, able to speak in clear full sentences. no apparent distress Physician History: PATIENT WITH A HISTORY OF CHRONIC BACK PAIN, FIBROMYALGIA, REFERRED TO EMERGENCY FOR EVALUATION OF LOW BLOOD PRESSURE. PATIENT DENIES COMPLAINS OF CHEST PAIN, DYSPNEA, NAUSE, EMESIS OR DIARRHEA. HAS A HISTORY OF IRREGULAR HEART RATE. Timing/Duration: today Modifying Factors: Improves With: nothing Associated Symptoms: denies symptoms Allergies/Adverse Reactions: sulfamethoxazole [From Bactrim] Allergy (Intermediate, Verified 06/27/17 13:10) trimethoprim [From Bactrim] Allergy (Intermediate, Verified 06/27/17 13:10) cefaclor [From Ceclor] Allergy (Mild, Verified 06/27/17 13:10) Diarrhea cephalexin monohydrate [From Keflex] Allergy (Mild, Verified 06/27/17 13:10) Diarrhea metronidazole [From Flagyl] Allergy (Mild, Verified 06/27/17 13:10) Nausea and Vomiting Metronidazole HCl [From Flagyl] Allergy (Mild, Verified 06/27/17 13:10) Nausea and Vomiting Home Medications: Aripiprazole 10 mg [Abilify 10 MG] 10 mg PO DAILY 04/26/17 [History] Aspirin 81 gm Chew [Baby Aspirin 81 mg Chew] 81 mg PO DAILY 04/26/17 [ History] Budesonide [Budesonide EC] 3 mg PO DAILY 04/26/17 [History] Cetirizine HCl [All Day Allergy] 10 mg PO DAILY 04/26/17 [History] Dicyclomine HCl [Bentyl] 10 mg PO Q8H PRN PRN 04/26/17 [History] Glipizide 5 mg [Glucotrol 5 MG] 5 mg PO DAILY 04/26/17 [History] Mometasone Furoate [Nasonex] 17 gm NS DAILY 04/26/17 [History] Omeprazole 20 MG [Prilosec 20 mg] 20 mg PO DAILY 04/26/17 [History] Pregabalin [Lyrica 100Mg] 100 mg PO BID 04/26/17 [History] Simvastatin 10 mg PO DAILY 04/26/17 [History] Metoprolol Succinate [Toprol Xl] 50 mg PO DAILY 06/27/17 [History] Ticagrelor [Brilinta] 60 mg PO BID 06/27/17 [History] Albuterol 2.5 mg/3 ml Neb [Proventil 2.5 mg/3 ml Neb] 2.5 mg IH UD [History] Eszopiclone [Lunesta] 4 mg PO HS 07/19/17 [History] Atorvastatin Calcium [Lipitor 20MG Tablet] 20 mg PO DAILY 08/20/17 [History] Fluoxetine HCl 10 mg [Prozac 10 mg] 0 mg PO DAILY 10/22/17 [History] Oxycodone HCl/Acetaminophen [Percocet 10-325 mg Tablet] 1 each PO Q4-6HPRN PRN 10/22/17 [History] Hx Tetanus, Diphtheria Vaccination/Date Given: No Hx Influenza Vaccination/Date Given: No Hx Pneumococcal Vaccination/Date Given: Yes Immunizations Up to Date: Yes - Review of Systems Constitutional: No Fever, No Chills Eyes: No Symptoms Ears, Nose, & Throat: No Symptoms Respiratory: No Symptoms, No Cough, No Dyspnea Cardiac: No Symptoms, No Chest Pain, No Edema, No Syncope Abdominal/Gastrointestinal: No Symptoms, No Abdominal Pain, No Nausea, No Vomiting, No Diarrhea Genitourinary Symptoms: No Symptoms, No Dysuria Musculoskeletal: No Symptoms, No Back Pain, No Neck Pain Skin: No Symptoms, No Rash Neurological: No Dizziness, No Focal Weakness, No Sensory Changes Psychological: No Symptoms Endocrine: No Symptoms All Other Systems: Reviewed and Negative - Past Medical History Pertinent Past Medical History: Yes Neurological History: Peripheral Neuropathy ENT History: No Pertinent History Cardiac History: Other Respiratory History: Other Endocrine Medical History: Diabetes Type II, Other Musculoskeletal History: Fibromyalgia, Osteoarthritis GI Medical History: GERD History: No Pertinent History Psycho-Social History: Anxiety, Depression Female Reproductive Disorders: Other Other Medical History: Liver disease - Past Surgical History Past Surgical History: Yes Neuro Surgical History: No Pertinent History Cardiac: No Pertinent History Respiratory: No Pertinent History Gastrointestinal: Cholecystectomy Genitourinary: No Pertinent History Musculoskeletal: No Pertinent History Female Surgical History: Section, Hysterectomy, Other Other Surgical History: tonsillectomy, breast biopsy, lymph node removal - Social History Smoking Status: Never smoker Exposure to second hand smoke: Yes Alcohol Use: None Drug Use: none Patient Lives Alone: No Significant Family History: no pertinent family hx - Female History Hx Last Menstrual Period: hysterectomy Hx Now: No - Nursing Vital Signs Nursing Vital Signs: Initial Vital Signs Temperature 97.6 F 10/25/17 13:51 Pulse Rate 76 10/25/17 13:51 Respiratory Rate 16 10/25/17 13:51 Blood Pressure 131/84 10/25/17 13:51 O2 Sat by Pulse Oximetry 94 L 10/25/17 13:51 Pain Scale Pain Intensity 2 - Physical Exam General Appearance: no apparent distress, alert Eye Exam: PERRL/EOMI, eyes nml inspection Ears, Nose, Throat Exam: normal ENT inspection, TMs normal, pharynx normal, moist mucous membranes Neck Exam: normal inspection, non-tender, supple, full range of motion Respiratory Exam: normal breath sounds, lungs clear, No respiratory distress Cardiovascular Exam: normal heart sounds, normal peripheral pulses, irregular Gastrointestinal/Abdomen Exam: soft, normal bowel sounds, No tenderness, No mass Back Exam: normal inspection, normal range of motion, No CVA tenderness, No vertebral tenderness Extremity Exam: normal inspection, normal range of motion, pelvis stable Neurologic Exam: alert, oriented x 3, cooperative, normal mood/affect, nml cerebellar function, nml station & gait, sensation nml, No motor deficits Skin Exam: normal color, warm, dry, No rash Lymphatic Exam: No adenopathy SpO2 Interpretation: normal SpO2: 98 Oxygen Delivery: Room Air - Course EKG Interpreted by Me: RATE, A-fib (VENTRICULAR RESPONSE MID 80'S) - Radiology Exams Chest X-ray Interpretation: Discussed w/ radiologist (RIGHT BASILAR ATELECTASIS VS SCARRING) Ordered Tests: Active Orders 24 hr Category Date Time Status EKG-ER Only STAT Care 10/25/17 14:13 Active Orthostatic Vital Signs STAT Care 10/25/17 14:13 Active CHEST 1 VIEW (PORTABLE) Stat Exams 10/25/17 14:26 Completed CBC W DIFF Stat Lab 10/25/17 14:22 Completed CMP Stat Lab 10/25/17 14:22 Completed TROPONIN Q3H Lab 10/25/17 14:22 Completed TROPONIN Q3H Lab 10/25/17 17:15 Ordered TROPONIN Q3H Lab 10/25/17 20:15 Ordered TROPONIN Q3H Lab 10/25/17 23:15 Ordered TROPONIN Q3H Lab 10/26/17 02:15 Ordered UA Stat Lab 10/25/17 14:14 Uncollected Medication Summary Discontinued Medications Generic Name Dose Route Start Last Admin Trade Name Freq PRN Reason Stop Dose Admin Sodium Chloride 1,000 mls @ 500 mls/hr 10/25/17 14:11 10/25/17 14:27 Sodium Chloride 0.9% 1000 Ml IV 10/25/17 16:10 500 mls/hr .Q2H STA Administration Sodium Chloride Confirm 10/25/17 14:22 Sodium Chloride 0.9% 1000 Ml Administered 10/25/17 14:23 Dose 1,000 mls @ ud .ROUTE .[facility] Lab/Rad Data: Laboratory Result Diagrams 10/25/17 14:22 10/25/17 14:22 Laboratory Results 10/25/17 10/25/17 10/25/17 Range/Units 14:22 14:22 14:22 WBC 6.2 (4.0-10.5) K/mm3 RBC 4.41 (4.1-5.4) M/mm3 Hgb 14.1 (12.0-16.0) gm/dl Hct 43.4 (35-47) % MCV 98.4 (78-100) fl MCH 32.0 (26-32) pg MCHC 32.5 (32-36) g/dl RDW 12.8 (11.5-14.0) % Plt Count 165 (150-450) K/mm3 MPV 11.5 H (6-9.5) fl Gran % 57.4 (36.0-66.0) % Lymphocytes % 35.9 (24.0-44.0) % Monocytes % 5.4 (0.0-12.0) % Eosinophils % 1.1 (0.00-5.0) % Basophils % 0.2 (0.0-0.4) % Basophils # 0.01 (0-0.4) Sodium 144 (136-145) mEq/L Potassium 4.2 (3.5-5.1) mEq/L Chloride 110 H (98-107) mEq/L Carbon Dioxide 27.0 (21-32) mEq/L Anion Gap 10.9 (5-15) MEQ/L BUN 13 (9-20) mg/dL Creatinine 0.98 (0.55-1.30) mg/dl Estimated GFR > 60 ML/MIN Glucose 116 H (70-110) MG/DL Calcium 8.7 (8.5-10.1) mg/dL Total Bilirubin 1.60 H (0.2-1.0) mg/dL AST 49 H (15-37) U/L ALT 49 (12-78) U/L Alkaline Phosphatase 118 H (46-116) U/L Troponin I < 0.017 (0.000-0.056) ng/ml Serum Total Protein 6.3 L (6.4-8.2) gm/dL Albumin 2.9 L (3.4-5.0) g/dL - Progress Progress: improved Progress Note: 10/25/17 17:33 ADMINISTERED I LITER NORMAL SALINE OVER 2 HOURS FOR TREATMENT OF ORTHOSTASIS Counseled pt/family regarding: lab results, diagnosis, rad results - Departure Time of Disposition: 17:35 Departure Disposition: Home Clinical Impression: ORTHOSTATIC HYPOTENSION, DEHYDRATION Condition: Stable Critical Care Time: No Referrals: WES VERDUGO [Primary Care Provider] - Additional Instructions: CONTINUE ALL CURRENT MEDICATIONS. DRINK PLENTY OF FLUIDS. CONSULT YOUR PRIMARY CARE PROVIDER FOR [facility]ALAUTION.
[2017-10-25 17:35] VITALS: BP 113/66; PULSE 72
[2017-10-26 07:23] VITALS: O2SAT 94
== END 2017-10-25 17:44 | disposition home or self-care (01) ==
LOC: ED 13:42
DX: I95.1 Orthostatic hypotension (principal); E86.0 Dehydration; E11.9 Type 2 diabetes mellitus without complications; Z79.899 Other long term (current) drug therapy; Z79.891 Long term (current) use of opiate analgesic
CPT/HCPCS: 36000; 36415; 71045; 80053; 84484; 85025; 93005; 96360; 96361; 99284

== ENCOUNTER 2017-11-02 16:03 | Emergency (ER) | payer MEDICARE ==
[2017-11-02] MEDS ORDERED: Zofran 4 MG/2 ML VIAL IV ONE (16:25)
[2017-11-02] MEDS ORDERED: Sodium Chloride 0.9% 1000 ML 1,000 ML IV STA (16:25)
[2017-11-02] MEDS ORDERED: Sodium Chloride 0.9% 1000 ML 1,000 ML ONE (16:33)
[2017-11-02] MEDS ORDERED: Zofran 4 MG/2 ML VIAL ONE (16:33)
--- NOTE | 2017-11-02 16:41 | ERPHSYRPT ---
- History of Present Illness Time Seen by Provider: 11/02/17 16:20 Historian: patient Exam Limitations: clinical condition Patient Subjective Stated Complaint: PT REPORTS VOMIT X 3 TODAY ET ABD PAIN BEGINNING YESTERDAY-DEIES DIARRHEA Triage Nursing Assessment: PT PINK WARM ET [id number] WITH NO DIFFICULTY Physician History: PATIENT WITH A HISTORY OF HYPERTENSION, TYPE 2 DIABETES AND FIBROMYALGIA COMPLAINS OF FREQUENT EPISODES OF EMESIS X 2 DAYS ASSOCIATED WITH WATERY DIARRHEA AND GENERALIZED ABDOMINAL PAIN. DENIES FEVER OR FLANK PAIN. Timing/Duration: yesterday Activities at Onset: none Abdominal Pain Onset Location: generalized abdomen Pain Radiation: no radiation Severity of Pain-Max: mild Severity of Pain-Current: mild Modifying Factors: Improves With: vomiting Associated Symptoms: nausea, vomiting Previous symptoms: no prior history Allergies/Adverse Reactions: sulfamethoxazole [From Bactrim] Allergy (Intermediate, Verified 11/02/17 16:13) trimethoprim [From Bactrim] Allergy (Intermediate, Verified 11/02/17 16:13) cefaclor [From Ceclor] Allergy (Mild, Verified 11/02/17 16:13) Diarrhea cephalexin monohydrate [From Keflex] Allergy (Mild, Verified 11/02/17 16:13) Diarrhea metronidazole [From Flagyl] Allergy (Mild, Verified 11/02/17 16:13) Nausea and Vomiting Metronidazole HCl [From Flagyl] Allergy (Mild, Verified 11/02/17 16:13) Nausea and Vomiting Home Medications: Aripiprazole 10 mg [Abilify 10 MG] 10 mg PO DAILY 04/26/17 [History] Budesonide [Budesonide EC] 3 mg PO DAILY 04/26/17 [History] Cetirizine HCl [All Day Allergy] 10 mg PO DAILY 04/26/17 [History] Dicyclomine HCl [Bentyl] 10 mg PO Q8H PRN PRN 04/26/17 [History] Glipizide 5 mg [Glucotrol 5 MG] 5 mg PO DAILY 04/26/17 [History] Mometasone Furoate [Nasonex] 17 gm NS DAILY 04/26/17 [History] Pregabalin [Lyrica 100Mg] 100 mg PO BID 04/26/17 [History] RX: Aspirin 81 gm Chew [Baby Aspirin 81 mg Chew] 81 mg PO DAILY 04/26/17 [ History] RX: Omeprazole 20 MG [Prilosec 20 mg] 20 mg PO DAILY 04/26/17 [History] RX: Simvastatin 10 mg PO DAILY 04/26/17 [History] Metoprolol Succinate [Toprol Xl] 50 mg PO DAILY 06/27/17 [History] Ticagrelor [Brilinta] 60 mg PO BID 06/27/17 [History] Eszopiclone [Lunesta] 4 mg PO HS 07/19/17 [History] RX: Albuterol 2.5 mg/3 ml Neb [Proventil 2.5 mg/3 ml Neb] 2.5 mg IH UD 03/30 [History] Atorvastatin Calcium [Lipitor 20MG Tablet] 20 mg PO DAILY 08/20/17 [History] Fluoxetine HCl 10 mg [Prozac 10 mg] 0 mg PO DAILY 10/22/17 [History] Oxycodone HCl/Acetaminophen [Percocet 10-325 mg Tablet] 1 each PO Q4-6HPRN PRN 10/22/17 [History] Hx Tetanus, Diphtheria Vaccination/Date Given: No Hx Influenza Vaccination/Date Given: No Hx Pneumococcal Vaccination/Date Given: Yes Immunizations Up to Date: Yes - Review of Systems Constitutional: No Fever, No Chills Eyes: No Symptoms Ears, Nose, & Throat: No Symptoms Respiratory: No Symptoms, No Cough, No Dyspnea Cardiac: No Chest Pain, No Edema, No Syncope Abdominal/Gastrointestinal: Abdominal Pain, Nausea, Vomiting, Diarrhea Genitourinary Symptoms: No Symptoms, No Dysuria Musculoskeletal: No Symptoms, No Back Pain, No Neck Pain Skin: No Rash Neurological: No Symptoms, No Dizziness, No Focal Weakness, No Sensory Changes Psychological: No Symptoms Endocrine: No Symptoms All Other Systems: Reviewed and Negative - Past Medical History Pertinent Past Medical History: Yes Neurological History: Peripheral Neuropathy ENT History: No Pertinent History Cardiac History: Other Respiratory History: Other Endocrine Medical History: Diabetes Type II, Other Musculoskeletal History: Fibromyalgia, Osteoarthritis GI Medical History: GERD History: No Pertinent History Psycho-Social History: Anxiety, Depression Female Reproductive Disorders: Other Other Medical History: Liver disease - Past Surgical History Past Surgical History: Yes Neuro Surgical History: No Pertinent History Cardiac: No Pertinent History Respiratory: No Pertinent History Gastrointestinal: Cholecystectomy Genitourinary: No Pertinent History Musculoskeletal: No Pertinent History Female Surgical History: Section, Hysterectomy, Other Other Surgical History: tonsillectomy, breast biopsy, lymph node removal - Social History Smoking Status: Never smoker Exposure to second hand smoke: Yes Alcohol Use: None Drug Use: none Patient Lives Alone: No Significant Family History: no pertinent family hx - Female History Hx Now: No - Nursing Vital Signs Nursing Vital Signs: Initial Vital Signs Temperature 97.5 F 11/02/17 16:12 Pulse Rate 106 H 11/02/17 16:12 Respiratory Rate 20 11/02/17 16:12 Blood Pressure 119/62 11/02/17 16:12 O2 Sat by Pulse Oximetry 95 11/02/17 16:12 Pain Scale Pain Intensity 2 - Physical Exam General Appearance: no apparent distress, alert Eye Exam: PERRL/EOMI, eyes nml inspection Ears, Nose, Throat Exam: normal ENT inspection, pharynx normal, moist mucous membranes Neck Exam: normal inspection, non-tender, supple, full range of motion Respiratory Exam: normal breath sounds, lungs clear, No respiratory distress Cardiovascular Exam: regular rate/rhythm, normal heart sounds Gastrointestinal/Abdomen Exam: soft, normal bowel sounds, tenderness, other ( PERIUMBILICAL TENDERNESS), No mass Back Exam: normal inspection, normal range of motion, No CVA tenderness, No vertebral tenderness Extremity Exam: normal inspection, normal range of motion, pelvis stable Neurologic Exam: alert, oriented x 3, cooperative, normal mood/affect, nml cerebellar function, sensation nml, No motor deficits Skin Exam: normal color, warm, dry SpO2 Interpretation: normal SpO2: 95 Oxygen Delivery: Room Air - CT Exams Abdomen/Pelvis CT Interpretation: Tele-radiologist Report (NO ACUTE ABNORMALITY IS NOT VISUALIZED, THERE IS A 2.5 CM CALCIFIED LEFT LOWER MASS MOST LIKELY A HAMARTOMA AND IS UNCHANGED) Ordered Tests: Active Orders 24 hr Category Date Time Status Clean Catch Urine Specimen STAT Care 11/02/17 16:45 Active IV Insertion STAT Care 11/02/17 16:20 Active ABDOMEN AND PELVIS W CONTRAST [CT] Stat Exams 11/02/17 16:25 Taken AMYLASE Stat Lab 11/02/17 16:15 Completed BMP Stat Lab 11/02/17 16:15 Completed CBC W DIFF Stat Lab 11/02/17 16:15 Completed CULTURE,URINE Stat Lab 11/02/17 16:00 Received LIPASE Stat Lab 11/02/17 16:15 Completed UA W/ MICROSCOPIC Stat Lab 11/02/17 16:00 Completed Medication Summary Discontinued Medications Generic Name Dose Route Start Last Admin Trade Name Wero PRN Reason Stop Dose Admin Sodium Chloride 1,000 mls @ 500 mls/hr 11/02/17 16:25 11/02/17 16:36 Sodium Chloride 0.9% 1000 Ml IV 11/02/17 18:24 500 mls/hr .Q2H STA Administration Sodium Chloride Confirm 11/02/17 16:33 Sodium Chloride 0.9% 1000 Ml Administered 11/02/17 16:34 Dose 1,000 mls @ ud .ROUTE .STK-MED ONE Levofloxacin/Dextrose 500 mg in 100 mls @ 100 mls/hr 11/02/17 17:39 11/02/17 18:19 Levofloxacin 500mg/100ml D5w IV 11/02/17 18:38 100 mls/hr STAT STA Administration Levofloxacin/Dextrose Confirm 11/02/17 18:18 Levofloxacin 500mg/100ml D5w Administered 11/02/17 18:19 Dose 500 mg in 100 mls @ ud IV .STK-MED ONE Ondansetron HCl 4 mg 11/02/17 16:25 11/02/17 16:36 Zofran 4 Mg/2 Ml Vial IV 11/02/17 16:26 4 mg STAT ONE Administration Ondansetron HCl Confirm 11/02/17 16:33 Zofran 4 Mg/2 Ml Vial Administered 11/02/17 16:34 Dose 4 mg .ROUTE .STK-MED ONE Lab/Rad Data: Laboratory Result Diagrams 11/02/17 16:15 11/02/17 16:15 Laboratory Results 11/02/17 11/02/17 11/02/17 Range/Units 16:15 16:15 16:00 WBC 6.5 (4.0-10.5) K/mm3 RBC 4.78 (4.1-5.4) M/mm3 Hgb 15.1 (12.0-16.0) gm/dl Hct 47.3 H (35-47) % MCV 99.0 (78-100) fl MCH 31.6 (26-32) pg MCHC 31.9 L (32-36) g/dl RDW 12.9 (11.5-14.0) % Plt Count 185 (150-450) K/mm3 MPV 11.9 H (6-9.5) fl Gran % 62.0 (36.0-66.0) % Lymphocytes % 31.7 (24.0-44.0) % Monocytes % 5.1 (0.0-12.0) % Eosinophils % 0.9 (0.00-5.0) % Basophils % 0.3 (0.0-0.4) % Basophils # 0.02 (0-0.4) Sodium 145 (136-145) mEq/L Potassium 3.9 (3.5-5.1) mEq/L Chloride 107 (98-107) mEq/L Carbon Dioxide 30.2 (21-32) mEq/L Anion Gap 11.3 (5-15) MEQ/L BUN 11 (9-20) mg/dL Creatinine 1.03 (0.55-1.30) mg/dl Estimated GFR 59 ML/MIN Glucose 116 H (70-110) MG/DL Calcium 9.4 (8.5-10.1) mg/dL Amylase 100 (25-115) U/L Lipase 103 (73-393) U/L Ur Collection Type CLEAN CATCH Urine Color YELLOW (YELLOW) Urine Appearance CLOUDY (CLEAR) Urine pH 5.0 (5-6) Ur Specific [place] 1.030 (1.005-1.025) Urine Protein TRACE (Negative) Urine Ketones NEGATIVE (NEGATIVE) Urine Blood NEGATIVE (0-5) Vin/ul Urine Nitrite NEGATIVE (NEGATIVE) Urine Bilirubin NEGATIVE (NEGATIVE) Urine Urobilinogen NORMAL (0-1) mg/dL Ur Leukocyte Esterase 1+ (NEGATIVE) Urine Microscopic RBC 0-2 (0-2) /HPF Urine Microscopic WBC 5-10 (0-5) /HPF Ur Epithelial Cells FEW (FEW) /HPF Urine Bacteria FEW (NEGATIVE) /HPF Urine Mucus SLIGHT (NEGATIVE) /HPF Urine Culture Reflexed YES (NO) Urine Glucose NEGATIVE (NEGATIVE) mg/dL Specimen Received 11/02/17 1600 - Progress Progress: improved Progress Note: 11/02/17 16:55 ADMINISTERED IV NORMAL SALINE 500ML/HR, ZOFRAN 4MG, 11/02/17 18:46, LEVAQUIN 500MG IVPB Counseled pt/family regarding: lab results, diagnosis, need for follow-up, rad results - Departure Time of Disposition: 19:25 Departure Disposition: Home Clinical Impression: ACUTE GASTROENTERITIS, URINARY TRACT INFECTION Condition: Stable Critical Care Time: No Referrals: WES VERDUGO [Primary Care Provider] - Additional Instructions: ZOFRAN 4MG EVERY 4 HOURS NEEDED FOR NAUSEA. ANTIBIOTIC LEVAQUIN 500MG DAILY FOR 10 DAYS. DRINK PLENTY OF FLUIDS. CONSULT YOUR PRIMARY CARE PROVIDER FOR EVALUATION. Prescriptions: Levofloxacin [Levaquin] 500 mg PO DAILY #10 tablet Ondansetron [Zofran Odt] 4 mg PO Q4-6HPRN PRN #8 tab.rapdis PRN Reason: Nausea
[2017-11-02 16:47] LABS: BASOPHIL % 0.3 % (0.0-0.4); Basophil (Absolute #) 0.02 (0-0.4); Eosinophil % 0.9 % (0.00-5.0); Eosinophil (Absolute #) 0.06 (0-0.5); Granulocyte Absolute (ANC) 4.04 (1.4-6.9); Hematocrit 47.3 % (35-47); Hemoglobin 15.1 gm/dl (12.0-16.0); Lymphocyte (Absolute #) 2.07 (1.0-4.6); Lymphocytes % 31.7 % (24.0-44.0); Mean Corpuscular Hemoglobin 31.6 pg (26-32); Mean Corpuscular Hgb Concent. 31.9 g/dl (32-36); Mean Platelet Volume 11.9 fl (6-9.5); Monocyte (Absolute #) 0.33 (0.0-1.3); Monocytes % 5.1 % (0.0-12.0); Platelet Count 185 K/mm3 (150-450); Red Blood Count 4.78 M/mm3 (4.1-5.4); Red Cell Distribution Width 12.9 % (11.5-14.0); White Blood Count 6.5 K/mm3 (4.0-10.5)
[2017-11-02 17:05] LABS: ANION GAP 11.3 MEQ/L (5-15); Calcium 9.4 mg/dL (8.5-10.1); Carbon Dioxide 30.2 mEq/L (21-32); Creatinine 1 1.03 mg/dl (0.55-1.30); Potassium 3.9 mEq/L (3.5-5.1)
[2017-11-02 17:24] LABS: Appearance CLOUDY (CLEAR)
[2017-11-02 17:28] LABS: Bilirubin NEGATIVE (NEGATIVE); Blood NEGATIVE Ery/ul (0-5); Glucose NEGATIVE (NEGATIVE); Ketones NEGATIVE (NEGATIVE); Leukocyte Esterase 1+ (NEGATIVE); Mucus SLIGHT /HPF (NEGATIVE); Nitrite NEGATIVE (NEGATIVE); Protein,Urine Dip TRACE (Negative); Urobilinogen NORMAL mg/dL (0-1)
[2017-11-02 17:29] LABS: Bacteria FEW /HPF (NEGATIVE); Epithelial Cells FEW /HPF (FEW)
[2017-11-02] MEDS ORDERED: Levofloxacin 500MG/100ML D5W 500 MG/100 ML BAG IV STA (17:39)
[2017-11-02] MEDS ORDERED: Levofloxacin 500MG/100ML D5W 500 MG/100 ML BAG IV ONE (18:18)
[2017-11-02 18:25] VITALS: BP 123/69; PULSE 106
[2017-11-02 18:50] VITALS: O2SAT 95
--- NOTE | 2017-11-02 23:12 | XRAY ---
Indication: Abdominal pain. Nausea, vomiting, and diarrhea. Multiple contiguous axial images obtained through the abdomen and pelvis using 80 cc Isovue 370 contrast only. Comparison: June 27, 2017. Lung bases again demonstrates bibasilar atelectasis/scarring and large left base calcified granuloma. Heart is not enlarged. Noncontrasted stomach and bowel loops again appears nonobstructed. Normal appendix. Again previous hysterectomy and cholecystectomy. No free fluid/air. Stable tiny hepatic cyst adjacent to the gallbladder fossa. Remaining liver, pancreas, spleen, adrenal glands, kidneys, ureters, and bladder appear unremarkable. Aorta is normal in course and caliber. No AAA or pathological retroperitoneal lymphadenopathy. Osseous structures intact again with mild spinal degenerative changes. Impression: 1. Stable hepatic cyst and left lung base calcified granuloma. 2. No new or acute intra-abdominal/pelvic abnormalities. Comment: Preliminary interpretation was made by [facility]. No critical discrepancy. CTDI 23.68
== END 2017-11-02 19:50 | disposition home or self-care (01) ==
LOC: ED 16:03
DX: K52.89 Other specified noninfective gastroenteritis and colitis (principal); N39.0 Urinary tract infection, site not specified; I10 Essential (primary) hypertension; E11.9 Type 2 diabetes mellitus without complications; M79.7 Fibromyalgia; G62.9 Polyneuropathy, unspecified; K21.9 Gastro-esophageal reflux disease without esophagitis; M19.90 Unspecified osteoarthritis, unspecified site; F41.8 Other specified anxiety disorders; K76.9 Liver disease, unspecified; Z79.899 Other long term (current) drug therapy
CPT/HCPCS: 36000; 36415; 74177; 80048; 81000; 82150; 83690; 85025; 87077; 87086; 87186; 96360; 96365; 96374; 99284; J1956; J2405

== ENCOUNTER 2019-01-13 23:01 | Emergency (ER) | payer MEDICARE ==
[2019-01-13] MEDS ORDERED: TORAdol 30 mg Injection IV ONE (23:36)
[2019-01-13] MEDS ORDERED: Zofran 4 MG/2 ML VIAL IV ONE (23:36)
[2019-01-13] MEDS ORDERED: Pepcid 20 MG VIAL IV ONE ×2 (23:36→23:47)
--- NOTE | 2019-01-13 23:42 | ERPHSYRPT ---
- History of Present Illness Time Seen by Provider: 01/13/19 23:27 Historian: patient Exam Limitations: no limitations Patient Subjective Stated Complaint: pt states she checked her blood sugar at home and was over 500. Triage Nursing Assessment: pt alert and oriented, answers questions approp. pt ambulatory with steady gait ntoed. respirations nonlabored. skin pink warm and dry. Physician History: Pt has been c/o RLQ abdominal pain, radiates to her back for few days, vomited once yesterday, had diarrhea x3 today, denies vomiting blood or coffee ground material, no bloody or black diarrhea, no fever, chills, urinary complaints, her blood sugar was apparently 524 today. After she arrived here her blood sugar is 147 (Glucometer), no chest pain, SOB, cough, dizziness, other complaints. Timing/Duration: day(s) (2) Activities at Onset: none Quality: cramping, sharpness Abdominal Pain Onset Location: RLQ Pain Radiation: flank (right) Severity of Pain-Max: moderate Severity of Pain-Current: moderate Modifying Factors: Improves With: nothing Associated Symptoms: diarrhea, nausea, vomiting Previous symptoms: no prior history Allergies/Adverse Reactions: sulfamethoxazole [From Bactrim] Allergy (Intermediate, Verified 01/13/19 23:21) trimethoprim [From Bactrim] Allergy (Intermediate, Verified 01/13/19 23:21) cefaclor [From Ceclor] Allergy (Mild, Verified 01/13/19 23:21) Diarrhea cephalexin monohydrate [From Keflex] Allergy (Mild, Verified 01/13/19 23:21) Diarrhea metronidazole [From Flagyl] Allergy (Mild, Verified 01/13/19 23:21) Nausea and Vomiting Metronidazole HCl [From Flagyl] Allergy (Mild, Verified 01/13/19 23:21) Nausea and Vomiting Home Medications: Aripiprazole 10 mg [Abilify 10 MG] 10 mg PO DAILY 04/26/17 [History] Aspirin 81 gm Chew [Baby Aspirin 81 mg Chew] 81 mg PO DAILY 04/26/17 [ History] Budesonide [Budesonide EC] 3 mg PO DAILY 04/26/17 [History] Cetirizine HCl [All Day Allergy] 10 mg PO DAILY 04/26/17 [History] Dicyclomine HCl [Bentyl] 10 mg PO Q8H PRN PRN 04/26/17 [History] Glipizide 5 mg [Glucotrol 5 MG] 5 mg PO DAILY 04/26/17 [History] Mometasone Furoate [Nasonex] 17 gm NS DAILY 04/26/17 [History] Omeprazole 20 MG [Prilosec 20 mg] 20 mg PO DAILY 04/26/17 [History] Pregabalin [Lyrica 100Mg] 100 mg PO BID 04/26/17 [History] Simvastatin 10 mg PO DAILY 04/26/17 [History] Metoprolol Succinate [Toprol Xl] 50 mg PO DAILY 06/27/17 [History] Ticagrelor [Brilinta] 60 mg PO BID 06/27/17 [History] Albuterol 2.5 mg/3 ml Neb [Proventil 2.5 mg/3 ml Neb] 2.5 mg IH UD [History] Eszopiclone [Lunesta] 4 mg PO HS 07/19/17 [History] Atorvastatin Calcium [Lipitor 20MG Tablet] 20 mg PO DAILY 08/20/17 [History] Fluoxetine HCl 10 mg [Prozac 10 mg] 0 mg PO DAILY 10/22/17 [History] Fluticasone/Vilanterol [Breo Ellipta 100-25 Mcg INH] 1 each IH UD 01/27/18 [ History] Oxycodone HCl/Acetaminophen [Oxycodon-Acetaminophen 7.5-325] 1 each PO TIDPRN PRN 01/27/18 [History] Hx Tetanus, Diphtheria Vaccination/Date Given: No Hx Influenza Vaccination/Date Given: Yes Hx Pneumococcal Vaccination/Date Given: Yes - Review of Systems Constitutional: No Symptoms Eyes: No Symptoms Ears, Nose, & Throat: No Symptoms Respiratory: No Symptoms Cardiac: No Symptoms Abdominal/Gastrointestinal: Abdominal Pain, Nausea, Vomiting, Diarrhea Genitourinary Symptoms: No Symptoms Musculoskeletal: No Symptoms Skin: No Symptoms Neurological: No Symptoms All Other Systems: Reviewed and Negative - Past Medical History Pertinent Past Medical History: Yes Neurological History: Peripheral Neuropathy ENT History: No Pertinent History Cardiac History: Other Respiratory History: Other Endocrine Medical History: Diabetes Type II, Other Musculoskeletal History: Fibromyalgia, Osteoarthritis GI Medical History: GERD History: No Pertinent History Psycho-Social History: Anxiety, Depression Female Reproductive Disorders: Other Other Medical History: myotonia dystrophy, liver disease - Past Surgical History Past Surgical History: Yes Neuro Surgical History: No Pertinent History Cardiac: No Pertinent History Respiratory: No Pertinent History Gastrointestinal: Cholecystectomy Genitourinary: No Pertinent History Musculoskeletal: No Pertinent History Female Surgical History: Section, Hysterectomy, Other Other Surgical History: tonsillectomy, breast biopsy, lymph node removal - Social History Smoking Status: Never smoker Exposure to second hand smoke: Yes Alcohol Use: None Drug Use: none Patient Lives Alone: No Significant Family History: no pertinent family hx - Nursing Vital Signs Nursing Vital Signs: Initial Vital Signs Pulse Rate 80 01/13/19 23:16 Respiratory Rate 18 01/13/19 23:16 Blood Pressure 130/73 01/13/19 23:16 O2 Sat by Pulse Oximetry 95 01/13/19 23:16 Pain Scale Pain Intensity 4 - Physical Exam General Appearance: no apparent distress Eye Exam: eyes nml inspection Ears, Nose, Throat Exam: normal ENT inspection, moist mucous membranes Neck Exam: normal inspection, non-tender, supple Respiratory Exam: normal breath sounds, lungs clear Cardiovascular Exam: regular rate/rhythm, normal heart sounds, normal peripheral pulses, No murmur Gastrointestinal/Abdomen Exam: soft, normal bowel sounds, tenderness (RLQ), No distention, No mass, No guarding, No ecchymosis, No rebound, No organomegaly Back Exam: normal inspection, CVA tenderness (mild, right) Extremity Exam: normal inspection Neurologic Exam: alert, oriented x 3, cooperative, normal mood/affect Skin Exam: normal color, warm, dry, No rash Lymphatic Exam: No adenopathy SpO2 Interpretation: normal SpO2: 95 O2 Delivery: Room Air - Course Nursing assessment & vital signs reviewed: Yes - CT Exams Abdomen/Pelvis CT Interpretation: Negative, Tele-radiologist Report Ordered Tests: Active Orders 24 hr Category Date Time Status IV Insertion STAT Care 01/13/19 23:36 Active ABDOMEN AND PELVIS W/0 CONTRAS [CT] Stat Exams 01/13/19 23:37 Taken AMYLASE Stat Lab 01/13/19 23:45 Completed CBC W DIFF Stat Lab 01/13/19 23:45 Completed CMP Stat Lab 01/13/19 23:45 Completed CULTURE,URINE Stat Lab 01/14/19 00:45 Received LIPASE Stat Lab 01/13/19 23:45 Completed Lactic Acid Stat Lab 01/13/19 23:45 Completed UA W/RFX UR CULTURE Stat Lab 01/14/19 00:45 Completed Urine Triage Profile Stat Lab 01/14/19 00:45 Completed Medication Summary Generic Name Dose Route Start Last Admin Trade Name Freq PRN Reason Stop Dose Admin Sodium Chloride 1,000 mls @ 100 mls/hr 01/13/19 23:45 01/13/19 23:52 Sodium Chloride 0.9% 1000 Ml IV 02/12/19 23:44 100 mls/hr .Q10H MIREYA Administration Discontinued Medications Generic Name Dose Route Start Last Admin Trade Name Freq PRN Reason Stop Dose Admin Famotidine 20 mg 01/13/19 23:36 01/13/19 23:52 Pepcid 20 Mg Vial IV 01/13/19 23:37 20 mg STAT ONE Administration Famotidine Confirm 01/13/19 23:47 Pepcid 20 Mg Vial Administered 01/13/19 23:48 Dose 20 mg IV .STK-MED ONE Ketorolac Tromethamine 30 mg 01/13/19 23:36 01/13/19 23:52 Toradol 30 Mg Injection IV 01/13/19 23:37 30 mg STAT ONE Administration Ketorolac Tromethamine Confirm 01/13/19 23:47 Toradol 30 Mg Injection Administered 01/13/19 23:48 Dose 30 mg .ROUTE .STK-MED ONE Ondansetron HCl 4 mg 01/13/19 23:36 01/13/19 23:52 Zofran 4 Mg/2 Ml Vial IV 01/13/19 23:37 4 mg STAT ONE Administration Ondansetron HCl Confirm 01/13/19 23:47 Zofran 4 Mg/2 Ml Vial Administered 01/13/19 23:48 Dose 4 mg .ROUTE .STK-MED ONE Lab/Rad Data: Laboratory Result Diagrams 01/13/19 23:45 01/13/19 23:45 Laboratory Results 01/14/19 01/14/19 01/13/19 Range/Units 00:45 00:45 23:45 WBC (4.0-10.5) K/mm3 RBC (4.1-5.4) M/mm3 Hgb (12.0-16.0) gm/dl Hct (35-47) % MCV (78-100) fl MCH (26-32) pg MCHC (32-36) g/dl RDW (11.5-14.0) % Plt Count (150-450) K/mm3 MPV (6-9.5) fl Gran % (36.0-66.0) % Eos # (Auto) (0-0.5) Absolute Lymphs (auto) (1.0-4.6) Absolute Monos (auto) (0.0-1.3) Lymphocytes % (24.0-44.0) % Monocytes % (0.0-12.0) % Eosinophils % (0.00-5.0) % Basophils % (0.0-0.4) % Absolute Granulocytes (1.4-6.9) Basophils # (0-0.4) Sodium 142 (137-145) mmol/L Potassium 3.9 (3.5-5.1) mmol/L Chloride 108 H (98-107) mmol/L Carbon Dioxide 29 (22-30) mmol/L Anion Gap 7.8 (5-15) MEQ/L BUN 10 (7-17) mg/dL Creatinine 0.70 (0.52-1.04) mg/dL Estimated GFR > 60.0 ML/MIN Glucose 159 H (74-106) mg/dL Lactic Acid (0.4-2.0) Calcium 8.9 (8.4-10.2) mg/dL Total Bilirubin 2.50 H (0.2-1.3) mg/dL AST 70 H (14-36) U/L ALT 45 H (0-35) U/L Alkaline Phosphatase 111 (38-126) U/L Serum Total Protein 6.4 (6.3-8.2) g/dL Albumin 3.6 (3.5-5.0) g/dL Amylase 74 (30-110) U/L Lipase 48 (23-300) U/L Urine Color ANNITA (YELLOW) Urine Appearance CLOUDY (CLEAR) Urine pH 5.0 (5-6) Ur Specific [place] 1.028 (1.005-1.025) Urine Protein NEGATIVE (Negative) Urine Ketones NEGATIVE (NEGATIVE) Urine Blood NEGATIVE (0-5) Vin/ul Urine Nitrite NEGATIVE (NEGATIVE) Urine Bilirubin NEGATIVE (NEGATIVE) Urine Urobilinogen 4 (0-1) mg/dL Ur Leukocyte Esterase MODERATE (NEGATIVE) Urine WBC (Auto) 6-10 (0-5) /HPF Urine RBC (Auto) 3-5 (0-2) /HPF U Hyaline Cast (Auto) 3-5 (0-2) /LPF U Epithel Cells (Auto) FEW (FEW) /HPF Urine Bacteria (Auto) NONE (NEGATIVE) /HPF Urine Mucus (Auto) SLIGHT (NEGATIVE) /HPF Urine Culture Reflexed YES (NO) Urine Glucose NEGATIVE (NEGATIVE) mg/dL Urine Opiates Level NEGATIVE (NEGATIVE) Ur Methadone NEGATIVE (NEGATIVE) Urine Barbiturates NEGATIVE (NEGATIVE) Ur Phencyclidine (PCP) NEGATIVE (NEGATIVE) Urine Amphetamine NEGATIVE (NEGATIVE) U Benzodiazepine Level NEGATIVE (NEGATIVE) Urine Cocaine NEGATIVE (NEGATIVE) Urine Marijuana (THC) NEGATIVE (NEGATIVE) 01/13/19 01/13/19 Range/Units 23:45 23:45 WBC 4.6 (4.0-10.5) K/mm3 RBC 4.18 (4.1-5.4) M/mm3 Hgb 13.4 (12.0-16.0) gm/dl Hct 42.1 (35-47) % MCV 100.7 H (78-100) fl MCH 32.1 H (26-32) pg MCHC 31.8 L (32-36) g/dl RDW 12.4 (11.5-14.0) % Plt Count 113 L (150-450) K/mm3 MPV 11.9 H (6-9.5) fl Gran % 58.0 (36.0-66.0) % Eos # (Auto) 0.13 (0-0.5) Absolute Lymphs (auto) 1.54 (1.0-4.6) Absolute Monos (auto) 0.26 (0.0-1.3) Lymphocytes % 33.4 (24.0-44.0) % Monocytes % 5.6 (0.0-12.0) % Eosinophils % 2.8 (0.00-5.0) % Basophils % 0.2 (0.0-0.4) % Absolute Granulocytes 2.67 (1.4-6.9) Basophils # 0.01 (0-0.4) Sodium (137-145) mmol/L Potassium (3.5-5.1) mmol/L Chloride (98-107) mmol/L Carbon Dioxide (22-30) mmol/L Anion Gap (5-15) MEQ/L BUN (7-17) mg/dL Creatinine (0.52-1.04) mg/dL Estimated GFR ML/MIN Glucose (74-106) mg/dL Lactic Acid 1.2 (0.4-2.0) Calcium (8.4-10.2) mg/dL Total Bilirubin (0.2-1.3) mg/dL AST (14-36) U/L ALT (0-35) U/L Alkaline Phosphatase (38-126) U/L Serum Total Protein (6.3-8.2) g/dL Albumin (3.5-5.0) g/dL Amylase (30-110) U/L Lipase (23-300) U/L Urine Color (YELLOW) Urine Appearance (CLEAR) Urine pH (5-6) Ur Specific [place] (1.005-1.025) Urine Protein (Negative) Urine Ketones (NEGATIVE) Urine Blood (0-5) Vin/ul Urine Nitrite (NEGATIVE) Urine Bilirubin (NEGATIVE) Urine Urobilinogen (0-1) mg/dL Ur Leukocyte Esterase (NEGATIVE) Urine WBC (Auto) (0-5) /HPF Urine RBC (Auto) (0-2) /HPF U Hyaline Cast (Auto) (0-2) /LPF U Epithel Cells (Auto) (FEW) /HPF Urine Bacteria (Auto) (NEGATIVE) /HPF Urine Mucus (Auto) (NEGATIVE) /HPF Urine Culture Reflexed (NO) Urine Glucose (NEGATIVE) mg/dL Urine Opiates Level (NEGATIVE) Ur Methadone (NEGATIVE) Urine Barbiturates (NEGATIVE) Ur Phencyclidine (PCP) (NEGATIVE) Urine Amphetamine (NEGATIVE) U Benzodiazepine Level (NEGATIVE) Urine Cocaine (NEGATIVE) Urine Marijuana (THC) (NEGATIVE) - Progress Progress: improved Progress Note: 01/14/19 01:39 Pt has been afebrile, pain resolved, feels better, she was advised about CT and lab results, she was started on PO Cipro and discharged home to rest x 2-3 days , drink plenty of fluids, and follow up with her physician in 2-3 days. Counseled pt/family regarding: lab results, diagnosis, need for follow-up, rad results - Departure Departure Disposition: Home Clinical Impression: UTI (urinary tract infection) Qualifiers: Urinary tract infection type: acute cystitis Hematuria presence: without hematuria Qualified Code(s): N30.00 - Acute cystitis without hematuria Condition: Stable Critical Care Time: No Referrals: WES VERDUGO [Primary Care Provider] - Instructions: Urinary Tract Infection, Adult (DC) Additional Instructions: Rest x 2-3 days, drink plenty of fluids, and follow up with your physician in 2- 3 days, return if severe pain, vomiting, fever> 102 F! Prescriptions: Ciprofloxacin [Cipro 500 MG] 500 mg PO BID 7 Days #14 tablet
[2019-01-13] MEDS ORDERED: Sodium Chloride 0.9% 1000 ML 1,000 ML IV SCH (23:45)
[2019-01-13] MEDS ORDERED: TORAdol 30 mg Injection ONE (23:47)
[2019-01-13] MEDS ORDERED: Zofran 4 MG/2 ML VIAL ONE (23:47)
[2019-01-13] MEDS ORDERED: Sodium Chloride 0.9% 1000 ML 1,000 ML ONE (23:48)
[2019-01-13 23:53] LABS: BASOPHIL % 0.2 % (0.0-0.4); Basophil (Absolute #) 0.01 (0-0.4); Eosinophil % 2.8 % (0.00-5.0); Eosinophil (Absolute #) 0.13 (0-0.5); Granulocyte Absolute (ANC) 2.67 (1.4-6.9); Hematocrit 42.1 % (35-47); Hemoglobin 13.4 gm/dl (12.0-16.0); Lymphocyte (Absolute #) 1.54 (1.0-4.6); Lymphocytes % 33.4 % (24.0-44.0); Mean Cell Volume 100.7 fl (78-100); Mean Corpuscular Hemoglobin 32.1 pg (26-32); Mean Corpuscular Hgb Concent. 31.8 g/dl (32-36); Mean Platelet Volume 11.9 fl (6-9.5); Monocyte (Absolute #) 0.26 (0.0-1.3); Monocytes % 5.6 % (0.0-12.0); Platelet Count 113 K/mm3 (150-450); Red Blood Count 4.18 M/mm3 (4.1-5.4); Red Cell Distribution Width 12.4 % (11.5-14.0); White Blood Count 4.6 K/mm3 (4.0-10.5)
[2019-01-14 00:05] LABS: ALBUMIN 3.6 g/dL (3.5-5.0); ALKALINE PHOSPHATASE 111 U/L (38-126); AMYLASE 74 U/L (30-110); ANION GAP 7.8 MEQ/L (5-15); BLOOD UREA NITROGEN 10 mg/dL (7-17); CHLORIDE 108 mmol/L (98-107); Calcium 8.9 mg/dL (8.4-10.2); Carbon Dioxide 29 mmol/L (22-30); Glucose 159 mg/dL (74-106); LIPASE 48 U/L (23-300); Potassium 3.9 mmol/L (3.5-5.1); SGOT/AST 70 U/L (14-36); SGPT/ALT 45 U/L (0-35); SODIUM 142 mmol/L (137-145); Total Protein 6.4 g/dL (6.3-8.2)
[2019-01-14 01:24] LABS: Appearance CLOUDY (CLEAR); Bilirubin NEGATIVE (NEGATIVE); Blood NEGATIVE Ery/ul (0-5); Epithelial Cells FEW /HPF (FEW); Glucose NEGATIVE (NEGATIVE); Ketones NEGATIVE (NEGATIVE); Leukocyte Esterase MODERATE (NEGATIVE); Mucus SLIGHT /HPF (NEGATIVE); Nitrite NEGATIVE (NEGATIVE); Protein,Urine Dip NEGATIVE (Negative); Specific Gravity 1.028 (1.005-1.025); Urobilinogen 4 mg/dL (0-1)
[2019-01-14 01:30] LABS: Amphetamine,Urine NEGATIVE (NEGATIVE); Barbiturate,Urine NEGATIVE (NEGATIVE); Benzodiazepine,Urine NEGATIVE (NEGATIVE); Cocaine,Urine NEGATIVE (NEGATIVE); Methadone,Urine NEGATIVE (NEGATIVE); Opiate,Urine NEGATIVE (NEGATIVE); PCP,Urine NEGATIVE (NEGATIVE); THC,Urine NEGATIVE (NEGATIVE)
[2019-01-14] MEDS ORDERED: Cipro 500 MG PO ONE (01:37)
[2019-01-14] MEDS ORDERED: Cipro 500 MG ONE (01:38)
[2019-01-14 01:53] VITALS: BP 102/56; PULSE 60; O2SAT 97
--- NOTE | 2019-01-14 08:51 | XRAY ---
Indication: Right lower quadrant pain. Emesis and diarrhea. Multiple contiguous axial images obtained through the abdomen and pelvis without contrast as ordered. Comparison: November 02, 2017. Lung bases again demonstrates mild bibasilar atelectasis/scarring, large left base calcified granuloma, and left infrahilar calcified nodes. No infiltrate or effusion. Heart is not enlarged. Noncontrasted stomach and bowel loops appear nonobstructed. Normal appendix. Again previous hysterectomy and cholecystectomy. No free fluid/air. Remaining liver, pancreas, spleen, adrenal glands, kidneys, ureters, bladder, and aorta appear unremarkable for noncontrast exam. Osseous structures intact again with mild degenerative changes throughout the lumbar spine. No ventral or inguinal hernias. Impression: 1. Again evidence for old granulomatous disease. 2. Remaining CT abdomen/pelvis without contrast exam is negative. Comment: Preliminary interpretation was made by [facility]. No discrepancy. CT DI 23.67
== END 2019-01-14 01:54 | disposition home or self-care (01) ==
LOC: ED 23:01
DX: N39.0 Urinary tract infection, site not specified (principal); E11.9 Type 2 diabetes mellitus without complications; K21.9 Gastro-esophageal reflux disease without esophagitis; M79.7 Fibromyalgia; M19.90 Unspecified osteoarthritis, unspecified site; F41.9 Anxiety disorder, unspecified; F32.9 Major depressive disorder, single episode, unspecified; K76.9 Liver disease, unspecified; Z79.899 Other long term (current) drug therapy
CPT/HCPCS: 36000; 36415; 74176; 80053; 80307; 81001; 82150; 83605; 83690; 85025; 87086; 96374; 96375; 99284; J1885; J2405; A9270-GY

== ENCOUNTER 2019-01-28 14:59 | Emergency (ER) | payer MEDICARE ==
--- NOTE | 2019-01-28 15:44 | ERPHSYRPT ---
- History of Present Illness Time Seen by Provider: 01/28/19 15:09 Historian: patient, family Exam Limitations: no limitations Physician History: patient with lower left abd pain crampy off and on since Saturday with blood when wipes after painful bm; hx of hemorrhoids in past; stool is hard brown with blood dtreaks; no fever; no N&V; good appetitie Timing/Duration: day(s) (3), worse Activities at Onset: none Quality: cramping Abdominal Pain Onset Location: LLQ Pain Radiation: no radiation Severity of Pain-Max: mild Severity of Pain-Current: mild Associated Symptoms: denies symptoms Previous symptoms: no prior history Allergies/Adverse Reactions: sulfamethoxazole [From Bactrim] Allergy (Intermediate, Verified 01/13/19 23:21) trimethoprim [From Bactrim] Allergy (Intermediate, Verified 01/13/19 23:21) cefaclor [From Ceclor] Allergy (Mild, Verified 01/13/19 23:21) Diarrhea cephalexin monohydrate [From Keflex] Allergy (Mild, Verified 01/13/19 23:21) Diarrhea metronidazole [From Flagyl] Allergy (Mild, Verified 01/13/19 23:21) Nausea and Vomiting Metronidazole HCl [From Flagyl] Allergy (Mild, Verified 01/13/19 23:21) Nausea and Vomiting Home Medications: Aripiprazole 10 mg [Abilify 10 MG] 10 mg PO DAILY 04/26/17 [History] Aspirin 81 gm Chew [Baby Aspirin 81 mg Chew] 81 mg PO DAILY 04/26/17 [ History] Budesonide [Budesonide EC] 3 mg PO DAILY 04/26/17 [History] Cetirizine HCl [All Day Allergy] 10 mg PO DAILY 04/26/17 [History] Dicyclomine HCl [Bentyl] 10 mg PO Q8H PRN PRN 04/26/17 [History] Glipizide 5 mg [Glucotrol 5 MG] 5 mg PO DAILY 04/26/17 [History] Mometasone Furoate [Nasonex] 17 gm NS DAILY 04/26/17 [History] Omeprazole 20 MG [Prilosec 20 mg] 20 mg PO DAILY 04/26/17 [History] Pregabalin [Lyrica 100Mg] 100 mg PO BID 04/26/17 [History] Simvastatin 10 mg PO DAILY 04/26/17 [History] Metoprolol Succinate [Toprol Xl] 50 mg PO DAILY 06/27/17 [History] Ticagrelor [Brilinta] 60 mg PO BID 06/27/17 [History] Albuterol 2.5 mg/3 ml Neb [Proventil 2.5 mg/3 ml Neb] 2.5 mg IH UD [History] Eszopiclone [Lunesta] 4 mg PO HS 07/19/17 [History] Atorvastatin Calcium [Lipitor 20MG Tablet] 20 mg PO DAILY 08/20/17 [History] Fluoxetine HCl 10 mg [Prozac 10 mg] 0 mg PO DAILY 10/22/17 [History] Fluticasone/Vilanterol [Breo Ellipta 100-25 Mcg INH] 1 each IH UD 01/27/18 [ History] Oxycodone HCl/Acetaminophen [Oxycodon-Acetaminophen 7.5-325] 1 each PO TIDPRN PRN 01/27/18 [History] Hx Tetanus, Diphtheria Vaccination/Date Given: No Hx Influenza Vaccination/Date Given: Yes Hx Pneumococcal Vaccination/Date Given: Yes - Review of Systems Constitutional: No Symptoms Eyes: No Symptoms Ears, Nose, & Throat: No Symptoms Respiratory: No Cough, No Dyspnea, No Wheezing Cardiac: No Chest Pain, No Palpitations, No Syncope Abdominal/Gastrointestinal: Abdominal Pain (lower left crampy), Constipation, No Nausea, No Vomiting, No Diarrhea, No Hematemesis, No Hematochezia, No Melena Genitourinary Symptoms: No Frequency, No Hematuria, No Urgency Musculoskeletal: No Symptoms Skin: No Cellulitis, No Rash Neurological: No Symptoms Psychological: No Symptoms Endocrine: No Symptoms Hematologic/Lymphatic: No Anemia, No Blood Clots, No Easy Bleeding, No Gum Bleeding, No Easy Bruising - Past Medical History Pertinent Past Medical History: Yes Neurological History: Peripheral Neuropathy ENT History: No Pertinent History Cardiac History: Other Respiratory History: Other Endocrine Medical History: Diabetes Type II, Other Musculoskeletal History: Fibromyalgia, Osteoarthritis GI Medical History: GERD History: No Pertinent History Psycho-Social History: Anxiety, Depression Female Reproductive Disorders: Other Other Medical History: myotonia dystrophy, liver disease - Past Surgical History Past Surgical History: Yes Neuro Surgical History: No Pertinent History Cardiac: No Pertinent History Respiratory: No Pertinent History Gastrointestinal: Cholecystectomy Genitourinary: No Pertinent History Musculoskeletal: No Pertinent History Female Surgical History: Section, Hysterectomy, Other Other Surgical History: tonsillectomy, breast biopsy, lymph node removal - Social History Smoking Status: Never smoker Exposure to second hand smoke: Yes Alcohol Use: None Drug Use: none Patient Lives Alone: No Significant Family History: no pertinent family hx - Female History Hx Now: No - Physical Exam General Appearance: mild distress, alert, obese Eye Exam: PERRL/EOMI, eyes nml inspection, No photophobia Ears, Nose, Throat Exam: normal ENT inspection, TMs normal, pharynx normal, moist mucous membranes Neck Exam: normal inspection, non-tender, supple, full range of motion, No JVD Respiratory Exam: normal breath sounds, lungs clear, airway intact, No chest tenderness, No respiratory distress Cardiovascular Exam: regular rate/rhythm, normal heart sounds, normal peripheral pulses, capillary refill <2 sec, No murmur Gastrointestinal/Abdomen Exam: soft, normal bowel sounds, tenderness (slight LLQ ), No distention, No mass, No guarding, No rebound, No organomegaly Pelvic Exam: deferred Rectal Exam: normal exam, normal rectal tone, hemorrhoids (painful; no active bleeding), No mass, No black stool, No blood Back Exam: normal inspection, normal range of motion, No CVA tenderness, No vertebral tenderness, No rash Extremity Exam: normal inspection, normal range of motion, No abbey's sign, No pedal edema Neurologic Exam: alert, oriented x 3, cooperative, 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, normal mood/affect, nml cerebellar function, nml station & gait Skin Exam: normal color, warm, dry, No rash, No petechiae, No cyanosis - Course Nursing assessment & vital signs reviewed: Yes - Progress Progress Note: 01/28/19 15:42 instructions and findings discussed family at bedside Counseled pt/family regarding: diagnosis, need for follow-up - Departure Departure Disposition: Home Clinical Impression: Acute hemorrhoid, Constipation Condition: Stable Critical Care Time: No Referrals: WES VERDUGO [Primary Care Provider] - Instructions: Hemorrhoids Additional Instructions: sitz baths; stool softner; fluids Follow-up with family doctor as directed. Call for appointment. Return if any problems. If you smoke please stop. Call or follow up with your family doctor for assistance if you need it to stop. Please wear your seatbelt when driving. Have a nice day. Thank you for allowing us to participate in your care today. :o) Dr Kevin Linda Prescriptions: Hydrocortisone Acetate [Anusol-Hc] 25 mg RC DAILY #10 supp.rect
[2019-01-28 15:45] VITALS: O2SAT 94
[2019-01-28 16:07] VITALS: BP 139/93; PULSE 68
== END 2019-01-28 16:00 | disposition home or self-care (01) ==
LOC: ED 14:59
DX: K64.9 Unspecified hemorrhoids (principal); K59.00 Constipation, unspecified
CPT/HCPCS: 99283

== ENCOUNTER 2019-02-05 17:05 | Emergency (ER) | payer MEDICARE ==
[2019-02-05] MEDS ORDERED: PERCOCET TABLET 5/325MG PO STA (17:26)
[2019-02-05] MEDS ORDERED: PERCOCET TABLET 5/325MG ONE (17:33)
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
[2019-02-05 18:46] VITALS: BP 122/70; PULSE 71; O2SAT 96
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
== END 2019-02-05 18:46 | disposition home or self-care (01) ==
LOC: ED 17:05
DX: S16.1XXA Strain of muscle, fascia and tendon at neck level, initial encounter (principal); V89.2XXA Person injured in unspecified motor-vehicle accident, traffic, initial encounter; G62.9 Polyneuropathy, unspecified; M79.7 Fibromyalgia; E11.9 Type 2 diabetes mellitus without complications; M19.90 Unspecified osteoarthritis, unspecified site; F41.9 Anxiety disorder, unspecified; K21.9 Gastro-esophageal reflux disease without esophagitis; F32.9 Major depressive disorder, single episode, unspecified; K76.9 Liver disease, unspecified; G71.11 Myotonic muscular dystrophy; M54.2 Cervicalgia; Z79.899 Other long term (current) drug therapy
CPT/HCPCS: 72125; 99284; L0172; A9270-GY

== ENCOUNTER 2019-07-13 02:26 | Observation (INO) | payer MEDICARE ==
--- NOTE | 2019-07-13 02:57 | ERPHSYRPT ---
- History of Present Illness Time Seen by Provider: 07/13/19 02:45 Source: patient, EMS Exam Limitations: no limitations Patient Subjective Stated Complaint: SOB Triage Nursing Assessment: Patient brought into ED via EMS and transferred to bed with assist of 4. Patient A+O X3. Patient's skin pink, warm and dry. Patient complains of shortness of breath that started earlier today but has gotten worse as the night as went one. Patient's lungs noted to have inspiratory /expiratory wheezes throughout. Patient on 3 liters of O2 per N/C at home. No edema noted. Heart tones audible. Patient complains of non productive cough for a few days. Physician History: 54 y/o obese white female with h/o oxygen dependent copd on 3 liters NC, pacemaker, and cough. ems brought her into ED for soa. just occurred a few hours ago. pt is suppose to be on a sleep apnea monitor. however, pt states she never wears it because shes lazy. familly member states her current condition is always like this. she is always sleepy. pt denies cp, denies abd pain. no n/ v/d. Timing/Duration: hour(s) (a few hours) Activities at Onset: none Severity of Dyspnea-Max: mild Severity of Dyspnea-Current: mild Possible Cause: frequent episodes Modifying Factors: Improves With: coughing Associated Symptoms: cough, No chest pain/discomfort, No hemoptysis Allergies/Adverse Reactions: sulfamethoxazole [From Bactrim] Allergy (Intermediate, Verified 07/13/19 02:30) trimethoprim [From Bactrim] Allergy (Intermediate, Verified 07/13/19 02:30) cefaclor [From Ceclor] Allergy (Mild, Verified 07/13/19 02:30) Diarrhea cephalexin monohydrate [From Keflex] Allergy (Mild, Verified 07/13/19 02:30) Diarrhea metronidazole [From Flagyl] Allergy (Mild, Verified 07/13/19 02:30) Nausea and Vomiting Metronidazole HCl [From Flagyl] Allergy (Mild, Verified 07/13/19 02:30) Nausea and Vomiting Home Medications: Aripiprazole 10 mg [Abilify 10 MG] 10 mg PO DAILY 04/26/17 [History] Cetirizine HCl [All Day Allergy] 10 mg PO DAILY 04/26/17 [History] Glipizide 5 mg [Glucotrol 5 MG] 5 mg PO DAILY 04/26/17 [History] Pregabalin [Lyrica 100Mg] 100 mg PO BID 04/26/17 [History] Metoprolol Succinate [Toprol Xl] 50 mg PO BID 06/27/17 [History] Albuterol 2.5 mg/3 ml Neb [Proventil 2.5 mg/3 ml Neb] 2.5 mg IH UD [History] Eszopiclone [Lunesta] 3 mg PO HS PRN 07/19/17 [History] Atorvastatin Calcium [Lipitor 20MG Tablet] 20 mg PO DAILY 08/20/17 [History] Fluoxetine HCl 10 mg [Prozac 10 mg] 20 mg PO DAILY 10/22/17 [History] Fluticasone/Vilanterol [Breo Ellipta 100-25 Mcg INH] 1 each IH UD 01/27/18 [ History] Oxycodone HCl/Acetaminophen [Oxycodon-Acetaminophen 7.5-325] 1 each PO QID PRN PRN 01/27/18 [History] Apixaban [Eliquis] 5 mg PO BID 01/28/19 [History] Furosemide 20 mg [Lasix 20 mg] 20 mg PO DAILY 01/28/19 [History] Alprazolam [Xanax] 1 tab PO Q4H PRN PRN 07/13/19 [History] Mesalamine [Apriso] 1 tab PO DAILY 07/13/19 [History] Potassium Chloride [K-Dur] 1 tab PO DAILY 07/13/19 [History] Hx Tetanus, Diphtheria Vaccination/Date Given: No Hx Influenza Vaccination/Date Given: Yes Hx Pneumococcal Vaccination/Date Given: Yes Immunizations Up to Date: Yes - Review of Systems Constitutional: No Symptoms Eyes: No Symptoms Ears, Nose, & Throat: No Symptoms Respiratory: Cough, Dyspnea Cardiac: No Symptoms Abdominal/Gastrointestinal: No Symptoms Genitourinary Symptoms: No Symptoms Musculoskeletal: No Symptoms Skin: No Symptoms Neurological: No Symptoms Psychological: No Symptoms Endocrine: No Symptoms Hematologic/Lymphatic: No Symptoms Immunological/Allergic: No Symptoms All Other Systems: Reviewed and Negative - Past Medical History Pertinent Past Medical History: Yes Neurological History: Migraines, Peripheral Neuropathy ENT History: No Pertinent History Cardiac History: Coronary Artery Disease, Myocardial Infarction ([place]) Respiratory History: COPD, Pneumonia, Sleep Apnea Endocrine Medical History: Diabetes Type II, Liver Disease Musculoskeletal History: Fibromyalgia, Fractures, Muscular Dystrophy, Osteoarthritis, Other GI Medical History: GERD History: No Pertinent History Psycho-Social History: Anxiety, Depression Female Reproductive Disorders: Other Other Medical History: FATTY LIVER, WEAR C-PAP, HX OF 2 CARDIAC STENTS 2015 AFTER [place] AND PACEMAKER PLACEMENT IN 2017. HX FX LEFT FOOT AND RIGHT ANKLE >10 YEARS AGO. ANXIETY, DEPRESSION. SX HX: , HYSTERECTOMY, TONEILLECTOMY , CHOLECYSTECTOMY. - Past Surgical History Past Surgical History: Yes Neuro Surgical History: No Pertinent History Cardiac: No Pertinent History Respiratory: No Pertinent History Gastrointestinal: Cholecystectomy Genitourinary: No Pertinent History Musculoskeletal: No Pertinent History Female Surgical History: Section, Hysterectomy, Other Other Surgical History: tonsillectomy, breast biopsy, lymph node removal - Social History Smoking Status: Never smoker Exposure to second hand smoke: Yes Alcohol Use: None Drug Use: none Patient Lives Alone: No Significant Family History: no pertinent family hx - Female History Hx Last Menstrual Period: hysterectomy Hx Now: No - Nursing Vital Signs Nursing Vital Signs: Initial Vital Signs Temperature 99.6 F 07/13/19 02:30 Pulse Rate 86 07/13/19 02:30 Respiratory Rate 25 H 07/13/19 02:30 Blood Pressure 137/101 07/13/19 02:30 O2 Sat by Pulse Oximetry 94 L 07/13/19 02:30 Pain Scale Pain Intensity 0 - Physical Exam General Appearance: no apparent distress, alert, lethargy (mild), obese Ears, Nose, Throat Exam: hearing grossly normal, normal pharynx Neck Exam: normal inspection, non-tender, supple, full range of motion Respiratory Exam: lungs clear, airway intact, No chest tenderness, No respiratory distress Cardiovascular/Chest Exam: normal heart sounds, regular rate/rhythm Abdominal/Gastrointestinal Exam: soft, normal bowel sounds, No tenderness Rectal Exam: not done Extremity Exam: non-tender, normal range of motion, normal inspection Neurologic Exam: alert, oriented x 3, cooperative, 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 Skin Exam: normal color, warm, dry Lymphatic Exam: No adenopathy SpO2 Interpretation: borderline oxygenation SpO2: 95 O2 Delivery: Room Air - Course Nursing assessment & vital signs reviewed: Yes EKG Interpreted by Me: RATE (92), Left [place] Deviation, Right Bundle Branch Block , Non-specific ST Changes, Other (persistent left ant fasc block) Ordered Tests: Active Orders 24 hr Category Date Time Status Millinery Department Manager STAT Care 07/13/19 03:03 Active EKG-ER Only STAT Care 07/13/19 03:02 Active IV Insertion STAT Care 07/13/19 03:02 Active Oxygen-ED Only Nasal Cannula 4 lpm Care 07/13/19 03:02 Active Pulse Oximetry (ED) STAT Care 07/13/19 03:02 Active CHEST 1 VIEW (PORTABLE) Stat Exams 07/13/19 03:03 Taken ARTERIAL BLOOD GASES Stat Lab 07/13/19 03:18 Completed ARTERIAL BLOOD GASES Stat Lab 07/13/19 05:20 Results BLOOD CULTURE Stat Lab 07/13/19 05:44 Ordered CBC W DIFF Stat Lab 07/13/19 03:31 Completed CMP Stat Lab 07/13/19 03:31 Completed Lactic Acid Stat Lab 07/13/19 03:18 Completed NT PRO BNP Stat Lab 07/13/19 03:31 Completed TROPONIN Q3H Lab 07/13/19 03:31 Completed TROPONIN Q3H Lab 07/13/19 06:15 Ordered TROPONIN Q3H Lab 07/13/19 09:15 Ordered TROPONIN Q3H Lab 07/13/19 12:15 Ordered TROPONIN Q3H Lab 07/13/19 15:15 Ordered Transfer Order Routine Transfer 07/13/19 Ordered Medication Summary Generic Name Dose Route Start Last Admin Trade Name Freq PRN Reason Stop Dose Admin Levofloxacin/Dextrose 500 mg in 100 mls @ 100 mls/hr 07/13/19 05:44 07/13/19 05:55 Levofloxacin 500mg/100ml D5w IV 07/13/19 06:43 100 mls/hr STAT STA 100 mls/hr Administration Discontinued Medications Generic Name Dose Route Start Last Admin Trade Name Freq PRN Reason Stop Dose Admin Furosemide 40 mg 07/13/19 03:02 07/13/19 03:15 Lasix 40 Mg/4 Ml IV 07/13/19 03:03 40 mg STAT ONE Administration Furosemide Confirm 07/13/19 03:10 Lasix 40 Mg/4 Ml Administered 07/13/19 03:11 Dose 40 mg .ROUTE .STK-MED ONE Levofloxacin/Dextrose Confirm 07/13/19 05:47 Levofloxacin 500mg/100ml D5w Administered 07/13/19 05:48 Dose 500 mg in 100 mls @ ud IV .STK-MED ONE Methylprednisolone Sodium Succinate 125 mg 07/13/19 03:02 07/13/19 03:16 Solu-Medrol 125 Mg IV 07/13/19 03:03 125 mg STAT ONE Administration Methylprednisolone Sodium Succinate Confirm 07/13/19 03:10 Solu-Medrol 125 Mg Administered 07/13/19 03:11 Dose 125 mg .ROUTE .STK-MED ONE Lab/Rad Data: Laboratory Result Diagrams 07/13/19 03:31 07/13/19 03:31 Laboratory Results 07/13/19 07/13/19 07/13/19 Range/Units 05:20 03:31 03:31 WBC (4.0-10.5) K/mm3 RBC (4.1-5.4) M/mm3 Hgb (12.0-16.0) gm/dl Hct (35-47) % MCV (78-100) fl MCH (26-32) pg MCHC (32-36) g/dl RDW (11.5-14.0) % Plt Count (150-450) K/mm3 MPV (6-9.5) fl Gran % (36.0-66.0) % Eos # (Auto) (0-0.5) Absolute Lymphs (auto) (1.0-4.6) Absolute Monos (auto) (0.0-1.3) Lymphocytes % (24.0-44.0) % Monocytes % (0.0-12.0) % Eosinophils % (0.00-5.0) % Basophils % (0.0-0.4) % Absolute Granulocytes (1.4-6.9) Basophils # (0-0.4) Puncture Site Pending pCO2 53 H (35-45) mmHg pO2 47 L* (75-100) mmHg Base Excess 8.3 H (-2.0-2.0) O2 Saturation 85.9 L (94-100) g/dF ABG pH 7.42 (7.35-7.45) ABG HCO3 34.4 H* (22-28) ABG O2 Sat (Measured) 88.8 L (95-100) % Gian Test Pending A-a Gradient 115 a/A Ratio 0.29 Hemoglobin 12.8 Carboxyhemoglobin 1.9 (0.0-6.9) % THgb Methemoglobin 1.5 (1.4-1.5) % Potassium 3.9 4.4 (3.5-5.1) Temperature 37.0 C POC O2 Flow Rate 32 % Sodium 141 (137-145) mmol/L Chloride 104 (98-107) mmol/L Carbon Dioxide 29 (22-30) mmol/L Anion Gap 12.0 (5-15) MEQ/L BUN 14 (7-17) mg/dL Creatinine 0.62 (0.52-1.04) mg/dL Estimated GFR > 60.0 ML/MIN Glucose 293 H (74-106) mg/dL Lactic Acid (0.4-2.0) Calcium 8.8 (8.4-10.2) mg/dL Total Bilirubin 2.30 H (0.2-1.3) mg/dL AST 68 H (14-36) U/L ALT 52 H (0-35) U/L Alkaline Phosphatase 140 H (38-126) U/L Troponin I < 0.012 (0.000-0.034) ng/mL NT-Pro-B Natriuret Pep 401 (0-900) pg/mL Serum Total Protein 6.3 (6.3-8.2) g/dL Albumin 3.5 (3.5-5.0) g/dL Slides for Path Review 07/13/19 07/13/19 Range/Units 03:31 03:18 WBC 7.5 (4.0-10.5) K/mm3 RBC 3.63 L (4.1-5.4) M/mm3 Hgb 12.4 (12.0-16.0) gm/dl Hct 37.2 (35-47) % MCV 102.5 H (78-100) fl MCH 34.1 H (26-32) pg MCHC 33.3 (32-36) g/dl RDW 12.6 (11.5-14.0) % Plt Count 91 L (150-450) K/mm3 MPV 12.1 H (6-9.5) fl Gran % 80.4 H (36.0-66.0) % Eos # (Auto) 0.07 (0-0.5) Absolute Lymphs (auto) 1.18 (1.0-4.6) Absolute Monos (auto) 0.21 (0.0-1.3) Lymphocytes % 15.8 L (24.0-44.0) % Monocytes % 2.8 (0.0-12.0) % Eosinophils % 0.9 (0.00-5.0) % Basophils % 0.1 (0.0-0.4) % Absolute Granulocytes 6.01 (1.4-6.9) Basophils # 0.01 (0-0.4) Puncture Site RIGHT RADIAL pCO2 47 H (35-45) mmHg pO2 56 L (75-100) mmHg Base Excess 6.7 H (-2.0-2.0) O2 Saturation 91.3 L (94-100) g/dF ABG pH 7.44 (7.35-7.45) ABG HCO3 31.9 H* (22-28) ABG O2 Sat (Measured) 95.3 (95-100) % Gian Test YES A-a Gradient 142 a/A Ratio 0.28 Hemoglobin 12.6 Carboxyhemoglobin 3.4 (0.0-6.9) % THgb Methemoglobin 0.9 L (1.4-1.5) % Potassium 4.3 (3.5-5.1) Temperature 37.0 C POC O2 Flow Rate 36 % Sodium (137-145) mmol/L Chloride (98-107) mmol/L Carbon Dioxide (22-30) mmol/L Anion Gap (5-15) MEQ/L BUN (7-17) mg/dL Creatinine (0.52-1.04) mg/dL Estimated GFR ML/MIN Glucose (74-106) mg/dL Lactic Acid 1.5 (0.4-2.0) Calcium (8.4-10.2) mg/dL Total Bilirubin (0.2-1.3) mg/dL AST (14-36) U/L ALT (0-35) U/L Alkaline Phosphatase (38-126) U/L Troponin I (0.000-0.034) ng/mL NT-Pro-B Natriuret Pep (0-900) pg/mL Serum Total Protein (6.3-8.2) g/dL Albumin (3.5-5.0) g/dL Slides for Path Review YES - Progress Progress: improved Air Movement: fair Progress Note: 07/13/19 05:46 cxr-mod bibasilar opacities. increased pulm vasc congestion 07/13/19 05:46 d/w dr. monae. reviewed pt hx, condition, labs, ekg and cxr results with him. he accepts pt for observation placement 07/13/19 05:47 Blood Culture(s) Obtained: Yes Antibiotics given: Yes Discussed with : Lauri Counseled pt/family regarding: lab results, diagnosis, need for follow-up, rad results - Departure Departure Disposition: Observation Clinical Impression: Shortness of breath, Opacities of both lungs present on chest x-ray, COPD exacerbation Condition: Fair Critical Care Time: No Referrals: WES VERDUGO [Primary Care Provider] - Instructions: Chronic Obstructive Pulmonary Disease
[2019-07-13] MEDS ORDERED: Lasix 40 MG/4 ML IV ONE (03:02)
[2019-07-13] MEDS ORDERED: solu-MEDROL 125 MG IV ONE (03:02)
[2019-07-13] MEDS ORDERED: Lasix 40 MG/4 ML ONE (03:10)
[2019-07-13] MEDS ORDERED: solu-MEDROL 125 MG ONE (03:10)
[2019-07-13 03:19] LABS: A-aADO2 142; ABG HEMOGLOBIN 12.6; ABG POTASSIUM 4.3 (3.5-5.1); ABG SITE RIGHT RADIAL; ARTERIAL BLD GAS O2 SATURATION 95.3 % (95-100); ARTERIAL BLOOD GAS BASE EXCESS 6.7 (-2.0-2.0); ARTERIAL BLOOD GAS FIO2 36 %; ARTERIAL BLOOD GAS PCO2 47 mmHg (35-45); ARTERIAL BLOOD GAS PO2 56 mmHg (75-100); ARTERIAL BLOOD GAS pH 7.44 (7.35-7.45); CARBOXYHEMOGLOBIN 3.4 % THgb (0.0-6.9); HCO3- 31.9 (22-28); HGB O2 SAT 91.3 g/dF (94-100); Lactic Acid 1.5 (0.4-2.0); Methhemoglobin 0.9 % (1.4-1.5); paO2 pAO1 0.28
[2019-07-13 03:20] LABS: ALLEN TEST OK? YES
[2019-07-13 03:32] LABS: BASOPHIL % 0.1 % (0.0-0.4); Basophil (Absolute #) 0.01 (0-0.4); Eosinophil % 0.9 % (0.00-5.0); Eosinophil (Absolute #) 0.07 (0-0.5); Granulocyte Absolute (ANC) 6.01 (1.4-6.9); Granulocytes % 80.4 % (36.0-66.0); Hematocrit 37.2 % (35-47); Hemoglobin 12.4 gm/dl (12.0-16.0); Lymphocyte (Absolute #) 1.18 (1.0-4.6); Lymphocytes % 15.8 % (24.0-44.0); Mean Cell Volume 102.5 fl (78-100); Mean Corpuscular Hgb Concent. 33.3 g/dl (32-36); Mean Platelet Volume 12.1 fl (6-9.5); Monocyte (Absolute #) 0.21 (0.0-1.3); Monocytes % 2.8 % (0.0-12.0); Platelet Count 91 K/mm3 (150-450); Red Blood Count 3.63 M/mm3 (4.1-5.4); Red Cell Distribution Width 12.6 % (11.5-14.0); White Blood Count 7.5 K/mm3 (4.0-10.5)
[2019-07-13 03:42] LABS: Mean Corpuscular Hemoglobin 34.1 pg (26-32)
[2019-07-13 03:54] LABS: ALBUMIN 3.5 g/dL (3.5-5.0); ALKALINE PHOSPHATASE 140 U/L (38-126); BLOOD UREA NITROGEN 14 mg/dL (7-17); CHLORIDE 104 mmol/L (98-107); Calcium 8.8 mg/dL (8.4-10.2); Carbon Dioxide 29 mmol/L (22-30); Creatinine 1 0.62 mg/dL (0.52-1.04); Glucose 293 mg/dL (74-106); NT PRO BNP 401 pg/mL (0-900); Potassium 4.4 mmol/L (3.5-5.1); SGOT/AST 68 U/L (14-36); SGPT/ALT 52 U/L (0-35); SODIUM 141 mmol/L (137-145); Total Protein 6.3 g/dL (6.3-8.2)
[2019-07-13 04:32] LABS: Slide Review 1 YES
[2019-07-13 05:26] LABS: A-aADO2 115; ABG HEMOGLOBIN 12.8; ABG POTASSIUM 3.9 (3.5-5.1); ARTERIAL BLD GAS O2 SATURATION 88.8 % (95-100); ARTERIAL BLOOD GAS BASE EXCESS 8.3 (-2.0-2.0); ARTERIAL BLOOD GAS FIO2 32 %; ARTERIAL BLOOD GAS PCO2 53 mmHg (35-45); ARTERIAL BLOOD GAS pH 7.42 (7.35-7.45); CARBOXYHEMOGLOBIN 1.9 % THgb (0.0-6.9); HCO3- 34.4 (22-28); HGB O2 SAT 85.9 g/dF (94-100); Methhemoglobin 1.5 % (1.4-1.5); paO2 pAO1 0.29
[2019-07-13 05:27] LABS: ARTERIAL BLOOD GAS PO2 47 mmHg (75-100)
[2019-07-13] MEDS ORDERED: Levofloxacin 500MG/100ML D5W 500 MG/100 ML BAG IV STA (05:44)
[2019-07-13] MEDS ORDERED: Levofloxacin 500MG/100ML D5W 500 MG/100 ML BAG IV ONE (05:47)
[2019-07-13] MEDS ORDERED: TYLENOL 325 MG PO PRN (06:20)
[2019-07-13] MEDS ORDERED: Zofran 4 MG/2 ML VIAL IV PRN (06:20)
--- NOTE | 2019-07-13 08:44 | XRAY ---
Indication: Short of breath and wheezing. COPD. Comparison: December 23, 2017. Portable chest underinflated today accentuating the cardiopulmonary structures. New bibasilar infiltrates versus atelectasis. Heart is not enlarged with stable left pacemaker. Bony thorax intact. Comment: Preliminary interpretation was made by [facility]. No critical discrepancy.
[2019-07-13] MEDS ORDERED: ESZOPICLONE 3 MG PO PRN (08:50)
[2019-07-13] MEDS ORDERED: PROVENTIL 2.5 MG/3 ML NEB IH SCH (09:00)
[2019-07-13] MEDS ORDERED: NON-FORMULARY ITEM (Fluticasone/Vilanterol [Breo Ellipta 100-25 Mcg Inh] 1 EACH) IH SCH (09:00)
[2019-07-13] MEDS ORDERED: Glucotrol 5 MG PO SCH (09:00)
[2019-07-13] MEDS ORDERED: Ambien 10 MG PO PRN (09:04)
[2019-07-13] MEDS ORDERED: MEDICATION INTERVENTION MC SCH (09:15)
[2019-07-13] MEDS ORDERED: MEDICATION INTERVENTION PO SCH (09:15)
[2019-07-13 09:18] LABS: ABG SITE RIGHT RADIAL; ALLEN TEST OK? YES
[2019-07-13] MEDS ORDERED: ELIQUIS 2.5 MG TABLET PO SCH (10:00)
[2019-07-13] MEDS ORDERED: LASIX 20 MG PO SCH (10:00)
[2019-07-13] MEDS ORDERED: CLARITIN 10 MG PO SCH (10:00)
[2019-07-13] MEDS ORDERED: ZOCOR 20MG PO SCH (10:00)
[2019-07-13] MEDS ORDERED: Klor Con 10 MEQ PO SCH (10:00)
[2019-07-13] MEDS ORDERED: Abilify 10 MG PO SCH (10:00)
[2019-07-13] MEDS ORDERED: POTASSIUM CHLORIDE PO SCH (10:00)
[2019-07-13] MEDS ORDERED: NON-FORMULARY ITEM (Apixaban [Eliquis] 5 MG) PO SCH (10:00)
[2019-07-13] MEDS ORDERED: NON-FORMULARY ITEM (Atorvastatin Calcium 20 MG) PO SCH (10:00)
[2019-07-13] MEDS ORDERED: Prozac 20 MG PO SCH (10:00)
[2019-07-13] MEDS ORDERED: Toprol Xl 50 MG PO SCH (10:00)
[2019-07-13] MEDS ORDERED: NON-FORMULARY ITEM (Cetirizine Hcl [All Day Allergy] 10 MG) PO SCH (10:00)
[2019-07-13] MEDS ORDERED: LYRICA 100MG PO SCH (10:00)
[2019-07-13] MEDS ORDERED: MESALAMINE PO SCH (10:00)
--- NOTE | 2019-07-13 10:15 | HP ---
CHIEF COMPLAINT: Shortness of breath. HISTORY OF PRESENT ILLNESS: The patient is a 54 year-old white female who presented to the emergency room with complaints of shortness of breath since approximately 1400 hours on 07/12/2019. The patient denies any chest pain. She presented to the emergency room for her shortness of breath and could be in heart failure and was given Lasix after which the patient was breathing much better. She denied chest pain during any of this period of time. The patient does have however a history of coronary artery disease having had stents and a pacemaker implanted. The patient's initial troponin was 0.012 when she was admitted to our facility. PAST MEDICAL HISTORY: Otherwise significant for chronic obstructive pulmonary disease, Crohn's disease, coronary artery disease, diabetes mellitus type 2. PAST SURGICAL HISTORY: Cholecystectomy. Tonsillectomy. Previous sections. Hysterectomy. HOME MEDICATIONS: Currently include Abilify 10 mg a day, Cetirizine 10 mg a day, Glucotrol 5 mg a day, Lyrica 100 mg b.i.d., metoprolol 50 mg b.i.d., Albuterol nebulizer PRN, Lunesta 3 mg at night, atorvastatin 20 mg a day, fluoxetine 20 mg a day, Breo Ellipta, Percocet 7.5/325 mg four times a day PRN, Eliquis 5 mg b.i.d., Lasix 20 mg daily, Xanax 1 mg every four hours PRN for anxiety. Mesalamine apparently 1 tablet a day, potassium 1 tablet a day. ALLERGIES: SULFA. CECLOR. CEFALEXIN. FLAGYL. PHYSICAL EXAMINATION: The patient's vital signs on admission showed a temperature 99.6F, pulse 86, respiratory rate 25, blood pressure 137/101. O2 saturation 94% on undisclosed amount of oxygen. HEENT: Normocephalic, atraumatic. He is currently wearing oxygen by nasal cannula. Oropharynx is somewhat dry. NECK: Supple without lymphadenopathy, thyromegaly or JVD. CHEST: Clear to auscultation with good air movement bilaterally. HEART: Currently is regular. No significant murmurs, rubs or gallops were heard. ABDOMEN: Soft. No palpable masses. EXTREMITIES: Without cyanosis, clubbing or edema. NEUROLOGIC: The patient is somewhat drowsy but awakens easily and answers questions apparently appropriately. The patient's demeanor otherwise seems to be somewhat depressed. She apparently came to the emergency room initially with dog feces on her feet. She is currently cleaned up and in bed doing okay. LAB DATA AND TESTS: Her initial troponin was 0.012 and subsequent one at 0640 hours in the morning was up to 0.395. Her arterial blood gas showed a pH of 7.44, pCO2 of 47, pO2 56. Her lactic acid was 1.5. White count 7,500, hemoglobin 12.4, PLT count 91,000. Her sugar at 0300 hours in the morning was 293, BUN 14, creatinine 0.62. Electrolytes were normal. Liver enzymes were slightly elevated. Bilirubin was 2.3, AST 68, ALT 52, alkaline phosphatase 140. The patient's EKG initially showed some pacing otherwise the rhythm currently shows her to be in sinus rhythm with what appears to be a first degree AV block. A 12 lead otherwise showed what appears to be bundle branch block with occasional spike seen which appears to be that it may not be capturing what I can tell. ASSESSMENT: A patient with shortness of breath likely secondary to congestive heart failure and what appears to be myocardial event with previous history of coronary artery disease. The patient does see Dr. Swanson and he has been contacted. Currently with the patient being pain free he feels like he will likely keep her here for observation. He does not apparently feel like that she will be a candidate for immediate heart cath. We will continue her usual home medications otherwise, monitor her closely on her O2 saturations. She is already doing better after being diuresed.
[2019-07-13] MEDS: NovoLOG Insulin SQ PRN ×2 (10:23→11:57)
[2019-07-13 12:47] VITALS: BP 103/68; PULSE 66; O2SAT 98
[2019-07-14] MEDS ORDERED: Levofloxacin 500MG/100ML D5W 500 MG/100 ML BAG IV SCH (10:00)
== END 2019-07-13 12:40 | disposition short-term general hospital (02) ==
LOC: ED 02:26 → MED SURG 06:10 → ICU 10:50
PROVIDERS: ADMIT General Practice; ATTEND Family Medicine
DX: I50.9 Heart failure, unspecified (principal); R79.89 Other specified abnormal findings of blood chemistry; J44.9 Chronic obstructive pulmonary disease, unspecified; E11.9 Type 2 diabetes mellitus without complications; I25.10 Atherosclerotic heart disease of native coronary artery without angina pectoris; Z79.01 Long term (current) use of anticoagulants; Z79.899 Other long term (current) drug therapy
CPT/HCPCS: 36000; 36415; 36600; 71045; 80053; 82375; 82803; 82962; 83605; 83880; 84484; 85025; 87040; 93005; 93041; 93268; 93306; 94760; 96374; 96375; 99285; G0378; 96365; J1940; J1956; J2930; A9270-GY

== ENCOUNTER 2019-08-14 14:42 | Emergency (ER) | payer MEDICARE ==
[2019-08-14] MEDS ORDERED: Sodium Bicarbonate 50 MEQ/50 ML VIAL IV ONE (14:43)
[2019-08-14] MEDS ORDERED: ATROPINE SULFATE 1MG SYR ABBOJECT IV ONE (14:43)
[2019-08-14] MEDS ORDERED: Epinephrine Preservative Free 1 MG/ML IJ ONE (14:43)
[2019-08-14] MEDS ORDERED: Cordarone 150 MG/3 ML Injection IV ONE (14:43)
[2019-08-14 15:08] LABS: VBG CARBOXYHEMOGLOBIN 2.8 % T HGB (0.0-6.9); VBG HEMOGLOBIN 10.1; VBG O2 SATURATION 41.9 (95-100); VBG PO2 34 mm/Hg (25-40)
[2019-08-14 15:09] LABS: VBG PCO2 71 mm/Hg (42-55); VBG POTASSIUM 6.2 (3.5-5.1); VBG pH < 6.80 (7.32-7.42)
[2019-08-14] MEDS ORDERED: Sodium Chloride 0.9% 1000 ML 0 ML ONE (15:09)
[2019-08-14 15:10] LABS: Hematocrit 34.2 % (35-47); Hemoglobin 9.9 gm/dl (12.0-16.0); Mean Cell Volume 115.2 fl (78-100); Mean Corpuscular Hemoglobin 33.3 pg (26-32); Mean Corpuscular Hgb Concent. 28.9 g/dl (32-36); Platelet Count 345 K/mm3 (150-450); Red Blood Count 2.97 M/mm3 (4.1-5.4); Red Cell Distribution Width 14.1 % (11.5-14.0); White Blood Count 14.4 K/mm3 (4.0-10.5)
[2019-08-14 15:11] LABS: Lactic Acid > 20.0 (0.4-2.0)
[2019-08-14 15:32] LABS: BAND 23 % (0.0-2.0); Lymphocytes 36 % (24-44); Metamyelocyte 6 %; Monocyte 13 % (0.0-12.0); Myelocyte 1 %; Neutrophils 21 % (36.0-66.0); Nucleated Red Blood Cell 3 %; Total Cells Counted 100
[2019-08-14 15:33] LABS: Platelet Estimate NORMAL (NORMAL)
[2019-08-14 15:34] LABS: ANISOCYTOSIS 2+; Macrocytosis 2+; Polychromasia 2+
[2019-08-14 15:35] LABS: Hypochromia 1+
[2019-08-14 15:36] LABS: Absolute Neutrophil Ct (ANC) 6.34 (1.4-6.9)
[2019-08-14 15:37] LABS: ALBUMIN 2.5 g/dL (3.5-5.0); ANION GAP 32.4 MEQ/L (5-15); BILIRUBIN,TOTAL 0.9 mg/dL (0.2-1.3); Calcium 8.7 mg/dL (8.4-10.2); Creatinine 1 1.14 mg/dL (0.52-1.04); Total Protein 5.4 g/dL (6.3-8.2)
[2019-08-14 15:45] LABS: Potassium 6.3 mmol/L (3.5-5.1); TROPONIN 0.396 ng/mL (0.000-0.034)
[2019-08-14 15:55] VITALS: PULSE 0
--- NOTE | 2019-08-14 16:47 | ERPHSYRPT ---
- History of Present Illness Time Seen by Provider: 08/14/19 14:45 Source: family, EMS Exam Limitations: clinical condition Patient Subjective Stated Complaint: ems reports patient was in cardiac arrest on their arrival at [facility]. patient is a resident there. was in rehab after a colon resection due to crohns. Triage Nursing Assessment: patient presents to ed in cardiac arrest, asystole, cpr in progress. has IO in left leg per ems with saline infusing. had 5 rounds of epi per ems with spont return of pulse one time. skin pale, cool to touch, pupils not reacting. see cpr flowsheet for meds and treatments. Physician History: 54 y/o morbidly obese white female with h/o chf and recent intrabd surgery( bowel resection) for Crohns dz. pts surgery was one week ago. pt was sent to [facility] 4 days ago for rehab. pt was found unresponsive at detention at approx 1402 per EMS report. at 1407, while cpr in progress at detention, ems notified. upon arrival of ems, pt unresponsive, pt intubated and continued asystole/pea protocol. pt had brief vfib. pt arrived orotracheally intubated in asystole/pea. pt unresponsive. EMS provided pt 5 rounds of iv epinephrine and 5 defibrillations. Timing/Duration: today Activities at Onset: none Modifying Factors: Improves With: nothing Nitro Today/Relief: no nitro taken today Aspirin Treatment Today: no aspirin today Associated Symptoms: other (unresponsive) Prior Chest Pain/Cardiac Workup: recent hospitalization (recent intrabd surgery) Allergies/Adverse Reactions: sulfamethoxazole [From Bactrim] Allergy (Intermediate, Verified 07/13/19 02:30) trimethoprim [From Bactrim] Allergy (Intermediate, Verified 07/13/19 02:30) cefaclor [From Ceclor] Allergy (Mild, Verified 07/13/19 02:30) Diarrhea cephalexin monohydrate [From Keflex] Allergy (Mild, Verified 07/13/19 02:30) Diarrhea metronidazole [From Flagyl] Allergy (Mild, Verified 07/13/19 02:30) Nausea and Vomiting Metronidazole HCl [From Flagyl] Allergy (Mild, Verified 07/13/19 02:30) Nausea and Vomiting Home Medications: Aripiprazole 10 mg [Abilify 10 MG] 10 mg PO DAILY 04/26/17 [History] Cetirizine HCl [All Day Allergy] 10 mg PO DAILY 04/26/17 [History] Glipizide 5 mg [Glucotrol 5 MG] 5 mg PO DAILY 04/26/17 [History] Pregabalin [Lyrica 100Mg] 100 mg PO BID 04/26/17 [History] Metoprolol Succinate [Toprol Xl] 50 mg PO BID 06/27/17 [History] Albuterol 2.5 mg/3 ml Neb [Proventil 2.5 mg/3 ml Neb] 2.5 mg IH UD [History] Eszopiclone [Lunesta] 3 mg PO HS PRN 07/19/17 [History] Atorvastatin Calcium [Lipitor 20MG Tablet] 20 mg PO DAILY 08/20/17 [History] Fluoxetine HCl 10 mg [Prozac 10 mg] 20 mg PO DAILY 10/22/17 [History] Fluticasone/Vilanterol [Breo Ellipta 100-25 Mcg INH] 1 each IH UD 01/27/18 [ History] Oxycodone HCl/Acetaminophen [Oxycodon-Acetaminophen 7.5-325] 1 each PO QID PRN PRN 01/27/18 [History] Apixaban [Eliquis] 5 mg PO BID 01/28/19 [History] Furosemide 20 mg [Lasix 20 mg] 20 mg PO DAILY 01/28/19 [History] Alprazolam [Xanax] 1 tab PO Q4H PRN PRN 07/13/19 [History] Mesalamine [Apriso] 4 tab PO DAILY 07/13/19 [History] Potassium Chloride [K-Dur] 1 tab PO DAILY 07/13/19 [History] Hx Tetanus, Diphtheria Vaccination/Date Given: No (unknown) Hx Influenza Vaccination/Date Given: Yes (unknown) Hx Pneumococcal Vaccination/Date Given: Yes (unknown) - Review of Systems Constitutional: Other (unresponsive code arrest) Eyes: Other (dilated unresponsive) Ears, Nose, & Throat: Other (orotracheally intubated) Respiratory: Other (no spontaneous breath sounds) Cardiac: Other (no spontaneous heart tones or palpable pulse) Genitourinary Symptoms: No Symptoms Musculoskeletal: No Symptoms Skin: Other (pale and cool with generalized mottling) Neurological: Other (unresponsive) All Other Systems: Unable due to condition - Past Medical History Pertinent Past Medical History: Yes Neurological History: Migraines, Peripheral Neuropathy ENT History: No Pertinent History Cardiac History: Coronary Artery Disease, Myocardial Infarction (DC) Respiratory History: COPD, Pneumonia, Sleep Apnea Endocrine Medical History: Diabetes Type II, Liver Disease Musculoskeletal History: Fibromyalgia, Fractures, Muscular Dystrophy, Osteoarthritis, Other GI Medical History: GERD History: No Pertinent History Psycho-Social History: Anxiety, Depression Female Reproductive Disorders: Other Other Medical History: FATTY LIVER, WEAR C-PAP, HX OF 2 CARDIAC STENTS 2015 AFTER DC AND PACEMAKER PLACEMENT IN 2017. HX FX LEFT FOOT AND RIGHT ANKLE >10 YEARS AGO. ANXIETY, DEPRESSION. SX HX: , HYSTERECTOMY, TONEILLECTOMY , CHOLECYSTECTOMY. - Past Surgical History Past Surgical History: Yes Neuro Surgical History: No Pertinent History Cardiac: No Pertinent History Respiratory: No Pertinent History Gastrointestinal: Bowel Surgery, Cholecystectomy Genitourinary: No Pertinent History Musculoskeletal: No Pertinent History Female Surgical History: Section, Hysterectomy, Other Other Surgical History: tonsillectomy, breast biopsy, lymph node removal - Social History Smoking Status: Never smoker Exposure to second hand smoke: Yes Alcohol Use: None Drug Use: none Patient Lives Alone: No Significant Family History: no pertinent family hx - Female History Hx Now: No - Nursing Vital Signs Nursing Vital Signs: Initial Vital Signs Pulse Rate 0 L 08/14/19 14:45 - Physical Exam General Appearance: obese, other (unresponsive) Eye Exam: other (bilat pupils fixed and dilated) Respiratory Exam: other (no spontaneous breath sounds) Cardiovascular Exam: other (no spontanous heart tones. no palpable pulses) Gastrointestinal/Abdomen Exam: soft, distention, ecchymosis Pelvic Exam: not done Rectal Exam: not done Back Exam: normal inspection, No CVA tenderness, No vertebral tenderness Extremity Exam: normal inspection, normal range of motion, pelvis stable Neurologic Exam: alert, oriented x 3, cooperative, medical anthropology director II-XII nml as tested Skin Exam: normal color, warm, dry SpO2 Interpretation: normal O2 Delivery: Room Air - Course Nursing assessment & vital signs reviewed: Yes Ordered Tests: Active Orders 24 hr Category Date Time Status CBC W DIFF Stat Lab 08/14/19 14:57 Completed CMP Stat Lab 08/14/19 14:57 Completed Lactic Acid Stat Lab 08/14/19 15:05 Results Manual Differential NC Stat Lab 08/14/19 14:57 Completed TROPONIN Stat Lab 08/14/19 14:57 Completed VENOUS BLOOD GAS Stat Lab 08/14/19 15:05 Completed Standby STAT RT 08/14/19 14:45 Completed Medication Summary Discontinued Medications Generic Name Dose Route Start Last Admin Trade Name Wero PRN Reason Stop Dose Admin Sodium Chloride Confirm 08/14/19 15:09 Sodium Chloride 0.9% 1000 Ml Administered 08/14/19 15:10 Dose 1,000 mls @ .[facility] Lab/Rad Data: Laboratory Result Diagrams 08/14/19 14:57 08/14/19 14:57 Laboratory Results 08/14/19 08/14/19 08/14/19 Range/Units 15:05 15:05 14:57 WBC (4.0-10.5) K/mm3 RBC (4.1-5.4) M/mm3 Hgb (12.0-16.0) gm/dl Hct (35-47) % MCV (78-100) fl MCH (26-32) pg MCHC (32-36) g/dl RDW (11.5-14.0) % Plt Count (150-450) K/mm3 MPV (6-9.5) fl Absolute Granulocytes (1.4-6.9) Segmented Neutrophils (36.0-66.0) % Band Neutrophils (0.0-2.0) % Lymphocytes (Manual) (24-44) % Monocytes (Manual) (0.0-12.0) % Metamyelocytes % Myelocytes % Nucleated RBCs % Hypochromia Platelet Estimate (NORMAL) RBC Morphology Polychromasia Anisocytosis Macrocytosis pO2/FiO2 Ratio 100.0 % VBG pH < 6.80 L* (7.32-7.42) VBG pCO2 at Pat Temp 71 H* (42-55) mm/Hg VBG pO2 at Pat Temp 34 (25-40) mm/Hg VBG O2 Sat (Zaki) 41.9 L (95-100) VBG Hemoglobin 10.1 VBG Carboxyhemoglobin 2.8 (0.0-6.9) % T HGB POC Potassium 6.2 H* (3.5-5.1) Sodium 141 (137-145) mmol/L Potassium 6.3 H* (3.5-5.1) mmol/L Chloride 103 (98-107) mmol/L Carbon Dioxide 12 L* (22-30) mmol/L Anion Gap 32.4 H (5-15) MEQ/L BUN 6 L (7-17) mg/dL Creatinine 1.14 H (0.52-1.04) mg/dL Estimated GFR 52.4 ML/MIN Glucose 177 H (74-106) mg/dL Lactic Acid > 20.0 H (0.4-2.0) Calcium 8.7 (8.4-10.2) mg/dL Total Bilirubin 0.90 (0.2-1.3) mg/dL AST 1349 H (14-36) U/L ALT 270 H (0-35) U/L Alkaline Phosphatase 121 (38-126) U/L Troponin I 0.396 H* (0.000-0.034) ng/mL Serum Total Protein 5.4 L (6.3-8.2) g/dL Albumin 2.5 L (3.5-5.0) g/dL 08/14/19 Range/Units 14:57 WBC 14.4 H (4.0-10.5) K/mm3 RBC 2.97 L (4.1-5.4) M/mm3 Hgb 9.9 L (12.0-16.0) gm/dl Hct 34.2 L (35-47) % MCV 115.2 H (78-100) fl MCH 33.3 H (26-32) pg MCHC 28.9 L (32-36) g/dl RDW 14.1 H (11.5-14.0) % Plt Count 345 (150-450) K/mm3 MPV 11.0 H (6-9.5) fl Absolute Granulocytes 6.34 (1.4-6.9) Segmented Neutrophils 21 L (36.0-66.0) % Band Neutrophils 23 H (0.0-2.0) % Lymphocytes (Manual) 36 (24-44) % Monocytes (Manual) 13 H (0.0-12.0) % Metamyelocytes 6 % Myelocytes 1 % Nucleated RBCs 3 % Hypochromia 1+ Platelet Estimate NORMAL (NORMAL) RBC Morphology ABNORMAL Polychromasia 2+ Anisocytosis 2+ Macrocytosis 2+ pO2/FiO2 Ratio % VBG pH (7.32-7.42) VBG pCO2 at Pat Temp (42-55) mm/Hg VBG pO2 at Pat Temp (25-40) mm/Hg VBG O2 Sat (Zaki) (95-100) VBG Hemoglobin VBG Carboxyhemoglobin (0.0-6.9) % T HGB POC Potassium (3.5-5.1) Sodium (137-145) mmol/L Potassium (3.5-5.1) mmol/L Chloride (98-107) mmol/L Carbon Dioxide (22-30) mmol/L Anion Gap (5-15) MEQ/L BUN (7-17) mg/dL Creatinine (0.52-1.04) mg/dL Estimated GFR ML/MIN Glucose (74-106) mg/dL Lactic Acid (0.4-2.0) Calcium (8.4-10.2) mg/dL Total Bilirubin (0.2-1.3) mg/dL AST (14-36) U/L ALT (0-35) U/L Alkaline Phosphatase (38-126) U/L Troponin I (0.000-0.034) ng/mL Serum Total Protein (6.3-8.2) g/dL Albumin (3.5-5.0) g/dL - Progress Progress: unchanged Air Movement: poor Blood Culture(s) Obtained: No Antibiotics given: No Discussed with : Cris Alonzo (notified her of pt ) - Departure Departure Disposition: Clinical Impression: Cardiac arrest Condition: Critical Care Time: Yes Critical Care Time(excluding separately billable procedures): Critical 30-74 mins Referrals: KEYA CALVERT [Primary Care Provider] -
== END 2019-08-14 17:14 | disposition expired ==
LOC: ED 14:42
DX: J44.9 Chronic obstructive pulmonary disease, unspecified (principal); I25.10 Atherosclerotic heart disease of native coronary artery without angina pectoris; G47.30 Sleep apnea, unspecified; G62.9 Polyneuropathy, unspecified; K21.9 Gastro-esophageal reflux disease without esophagitis; F41.9 Anxiety disorder, unspecified; E11.9 Type 2 diabetes mellitus without complications; F32.9 Major depressive disorder, single episode, unspecified; G71.00 Muscular dystrophy, unspecified; Z79.01 Long term (current) use of anticoagulants; Z79.899 Other long term (current) drug therapy; K76.9 Liver disease, unspecified; M19.90 Unspecified osteoarthritis, unspecified site
CPT/HCPCS: 36415; 80053; 82805; 83605; 84484; 85025; 94799; 96360; 99284; 99291; J0171; J0282; J0461